=== PATIENT | male | born 1960 | race African-American/Black ===

== ENCOUNTER 2016-05-14 17:13 | Inpatient (IN) ==
--- NOTE | 2016-05-14 17:46 | Emergency Department Note ---
Jc Campa Brittany, am scribing for, and in the presence of, Juan Miguel Lance MD 17:37. Natalio Campa Doug C, MD, personally performed the services described in this documentation, ascribed by Deedee Greene in my presence, and it is both accurate and complete [id number] . Arrival - Arrival Chief Complaint: Nausea/Vomiting/Diarrhea ED Nursing Triage Note: c/o being a transfer from [facility] to for further evaluation of nausea/vomiting and possible small bowel obstruction,patient received 4 mg morphine/4 mg zofran,+ tenderness to the abd. 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 Patient has a history of invasive adenocarcinoma of the colon and underwent a diverting colostomy and partial colectomy in February 2016. Patient states he developed bloating and increased abdominal pain yesterday. He was seen at [facility] and had a CAT scan revealing small bowel obstruction versus ileus. Patient was transferred here for further evaluation. Patient states he feels much better since they put the NG tube in place. Is not having any fever or chills associated with this. Laboratory work at [facility] was unremarkable. Allergies/Adverse Reactions: Allergies Allergy/AdvReac Type Severity Reaction Status Date / Time No Known Allergies Allergy Unverified 03/01/16 23:34 Home Medications: Home Medications Medication Instructions Recorded Confirmed Type Ciprofloxacin Tab [Cipro Tab] 500 mg PO Q12HR #28 tablet 03/06/16 03/11/16 Rx Acetaminophen Tab [Tylenol Tab] 650 mg PO Q4H PRN #0 tablet 03/30/16 Rx Alum/Mag/Simeth Max Str Liquid 60 ml NG Q4H udcup 03/30/16 Rx [Mylanta Max Strength Liquid] Metoclopramide Tab [Reglan Tab] 5 mg PO BID #20 tablet 03/30/16 Rx Nicotine 21 mg/24 Hr Patch 1 patch TRANSDERM DAILY patch 03/30/16 Rx [Nicoderm CQ 21 mg/24 hr Patch] oxyCODONE/ACETAMINOPHEN 5-325 1 tablet PO Q8H PRN #40 tablet 03/30/16 Rx [Percocet 0-080] Review of System - Review of System 12 point system: reviewed and no additional remarkable complaints except as stated - Review of System Constitutional: Absent: chills, fever Eyes: Absent: vision change Head/Ears/Nose/Throat: Absent: nasal drainage, sore throat Respiratory: Absent: respiratory distress Cardiovascular: Absent: chest pain, palpitations Gastrointestinal: Present: abdominal pain, nausea, vomiting, constipation, other (bloating). Absent: diarrhea, melena, hematochezia Genitourinary male: Absent: urgency, dysuria, frequency Musculoskeletal: Absent: arm pain, back pain, leg pain, neck pain Skin: Absent: rash Neurological: Absent: headache Psychiatric: Absent: anxiety, depression Endocrine: Absent: fatigue Hematological/Lymphatic: Absent: easy bleeding, easy bruising Medical,Surgical,& Family Hx - Medical History Cardio: No history of: Hypertension Endocrine: No history of: Diabetes Mellitus (IDDM) Gastrointestinal: History of: Gastrointestinal Cancer - Surgical History Thoracic Surgeries: Patient denies;: Organ Transplant Abdominal Surgeries: Surgical HX of: Abdominal Surgery (Partial colectomy with diverting colostomy) - Family History Family History: noncontributory - Social History Smoking Status: Current every day smoker Exam Vital Signs: Vital Signs Temperature 98.0 F 05/14/16 17:13 Pulse Rate 81 05/14/16 17:21 Respiratory Rate 20 05/14/16 17:21 Blood Pressure 126/88 05/14/16 17:21 O2 Sat by Pulse Oximetry 100 05/14/16 17:21 - General General appearance: alert, in no apparent distress - Head Head exam: Present: atraumatic, normocephalic - Eye Eye exam: Present: PERRL, EOMI - ENT ENT exam: Present: normal oropharynx, mucous membranes moist - Neck Neck exam: Present: full ROM, trachea midline. Absent: tenderness - Chest Chest inspection: Present: symmetric chest wall rise. Absent: tenderness - Respiratory Respiratory exam: Present: normal lung sounds bilaterally. Absent: rales, rhonchi, wheezes - Cardiovascular Cardiovascular exam: Present: regular rate, normal rhythm, normal heart sounds. Absent: murmur, rubs, gallop - Abdominal Exam Abdominal exam: Present: soft, distention, tenderness (diffusely tender to palpation), diminished bowel sounds (silent bowel sounds), other (intact colostomy bag noted to the LLQ). Absent: normal bowel sounds - Extremities Exam Extremities exam: Present: full ROM. Absent: tenderness - Back Exam Back exam: Present: full ROM. Absent: tenderness - Neurological Exam Neurological exam: Present: alert, oriented X3, CN II-XII intact. Absent: motor sensory deficit - Psychiatric Psychiatric exam: Present: normal affect - Skin Skin exam: Present: warm, dry, intact, normal color Course Course Narrative: Patient's clinical presentation, laboratory and radiographic findings were discussed with Dr. Sousa. Patient will be admitted to Dr. Baxter's service Results - Labs Lab Results: I have reviewed the patients labs (Lab work from [facility] revealed no significant abnormality.) Disposition Clinical Impression: Small bowel obstruction, Colon cancer Case discussed with: patient Disposition: Still a Patient Condition: Stable Time of Disposition: 17:46
--- NOTE | 2016-05-14 19:18 | XRay Report ---
XR abdomen 2V Indication: Abdominal pain. Abdomen 3 views: When compared to 03/19/16, surgical clips throughout the left abdomen are again shown. The KELLY drain has been removed. Gaseous distention bordering on dilation of small bowel is present centrally and there is gas and stool in the colon. Air-fluid levels are present. Left lower quadrant colostomy noted. NG tube is present. Comparison the CT obtained at outside facility wires earlier confirms constipation of the colon, with small bowel dilatation is fluid filled with scattered air-fluid levels. Impression: Constipation. The presence of air-fluid levels and borderline dilated small bowel centrally suggests a severe ileus as well. Mechanical obstruction highly unlikely given the appearance of the colon. PROCEDURE INTERPRETED AT [facility] DEPARTMENT OF RADIOLOGY Final Report Signed by: Dany Pfeiffer M.D.
[2016-05-14] MEDS: MORPHINE 2 MG/1 ML SYRINGE IV PRN (20:33)
[2016-05-14] MEDS: DEXTROSE 5% NACL 0.45% 1,000 ML IV SCH (20:38)
[2016-05-15] MEDS: DEXTROSE 5% NACL 0.45% 1,000 ML IV SCH ×5 (03:42→21:30)
[2016-05-15] MEDS: MORPHINE 2 MG/1 ML SYRINGE IV PRN ×5 (03:42→21:46)
[2016-05-15] MEDS: ONDANSETRON 4 MG/2 ML VIAL IV PRN ×2 (04:03→12:46)
[2016-05-15 07:41] LABS: Basophils % 0.1 % (0.0-0.8); Eosinophils # 0.2 10*3/uL (0.0-0.87); Eosinophils % 1.7 % (0.00-10.9); Hematocrit 35.3 VOL% (42.0-52.0); Hemoglobin 10.8 GM/DL (14.0-18.0); Immature Granulocytes % 0.5 %; Immature Granulocytes Absolute 0.04 #; Lymphocytes # 1.5 10*3/uL (1.4-4.0); Lymphocytes % 17.4 % (21.2-54.2); Mean Corpuscular HGB Conc 30.6 GM/DL (32-36); Mean Corpuscular Hemoglobin 24 PG (27-34); Mean Corpuscular Volume 78.4 FL (87-102); Mean Platelet Volume 8.5 FL (9.6-12.0); Monocytes # 1.1 10*3/uL (0.11-0.8); Monocytes % 12.3 % (1.7-12.7); Neutrophils # 5.9 10*3/uL (1.4-7.4); Platelet Count 345 10*3/uL (130-400); White Blood Count 8.6 10*3/uL (4.5-13.71)
[2016-05-15 08:06] LABS: Osmolality,Calculated 281.1 MOS/KG (273-304); Potassium 3.6 MMOL/L (3.5-5.1)
[2016-05-15] MEDS: PANTOPRAZOLE 40 MG VIAL IV SCH (08:14)
--- NOTE | 2016-05-15 11:07 | CT Report ---
CT abdomen pelvis w con Indication: Small bowel obstruction. CT ABDOMEN AND PELVIS WITH CONTRAST DLP: 729 mGy*cm Comparison: CT from yesterday from outside facility Technique: Axial CT images of the abdomen and pelvis were obtained with IV contrast; Omnipaque 350, 100 cc. Oral contrast was administered. Abdomen: NG tube is present. Oral contrast is now present in the stomach and small bowel but does not reach the cecum. Small bowel dilatation, bowel wall thickening and multiple air-fluid levels are present. Greatest diameter of small bowel measured is almost 40 mm. Significant increased stool is present throughout colon. Left lower quadrant colostomy is present. Adjacent to the colostomy are couple of fluid collections the may be partially walled off. The largest of these is medial measuring 88 x 50 mm in size. Aorta is of normal caliber in the branch vessels of the SMA appear unremarkable. Trace ascites adjacent to the liver. Liver, spleen, pancreas, gallbladder, adrenal glands and right kidney are unremarkable. 8mm left renal cyst noted. Heart size is normal. Scarring lung bases is present. Pelvis: Small amount of free fluid is present in the pelvis. Urinary bladder appears thick walled superiorly. The Bernard's pouch is decompressed and appears grossly intact by CT. No lymphadenopathy identified. No bone lesions. Impression: 1. Small bowel dilatation with multiple air-fluid levels, bowel wall thickening and significant stool throughout colon noted. No transition point identified. If this is a mechanical obstruction, is distal colon at or near the site of the left lower quadrant colostomy. 2. Adjacent to the colostomy site are 2 fluid collections with additional minimal ascites adjacent to the liver and in the pelvis. Differential is ascites versus abscess. 3. Left renal cyst. PROCEDURE INTERPRETED AT [facility] DEPARTMENT OF RADIOLOGY Final Report Signed by: Dany Pfeiffer M.D.
[2016-05-15] MEDS: ENOXAPARIN 40 MG/0.4 ML SYRINGE SUBCUT SCH (12:45)
--- NOTE | 2016-05-15 13:54 | General Surg History&Physical ---
Assessment and Plan (1) Bowel obstruction Status: Acute Assessment and plan: This patient appears to have an obstruction at the site of his colostomy. There is some mass effect nearby from either fluid collections or tumor implants or could be a mixture of the tube. He is not febrile and has no white count and at this time after surgery I certainly think an abscess would be less likely. We are going to place a red rubber catheter and try to do enemas through the ostomy to see if we can relieve this. There is a small chance he could also have a small bowel obstruction but I don't see any clear transition point I think the more likely thing is that he is obstructed at the ostomy site so we will treat it like this for now and see how he does today. Continue NG tube to low intermittent wall suction in the meantime. Current Visit: No History of Present Illness Chief complaint: abdominal pain with decreased ostomy output History of present illness: Mr. Goel is a 55 year old male who recently underwent an exploratory laparotomy with sigmoid colectomy and end colostomy also known as a Bernard's procedure, by Dr. Baxter for a sigmoid colon obstruction ended being an invasive carcinoma. The patient presents back to the hospital last night with worsening abdominal pain and nausea and vomiting with decreased ostomy output. He was evaluated at outside hospital with a noncontrast CT scan that demonstrated diffuse enlargement of the small intestine as well as stool throughout the colon. He was transferred [facility] for management and admitted to the surgical service for evaluation. I repeated his CT scan of abdomen and pelvis with by mouth and IV contrast today and that reveals no discrete transition point in the small bowel but the contrast has not made it all the way into the colon and there is fairly significant constipation with stool throughout the colon as well as a possible narrowed site at the ostomy draining out into the bag as well as some fluid collections that appear walled off around the ostomy site and could represent abscess or tumor implants. The patient is fairly uncomfortable today but he feels a little bit better after NG tube placement. Home Medications Medication Instructions Recorded Confirmed Type Metoclopramide Tab [Reglan Tab] 5 mg PO BID #20 tablet 03/30/16 05/14/16 Rx Tamsulosin [Flomax] 0.4 mg PO DAILY 05/14/16 05/14/16 History Tramadol HCl [Tramadol Tab] 50 mg PO TID 05/14/16 05/14/16 History Allergies Allergy/AdvReac Type Severity Reaction Status Date / Time No Known Allergies Allergy Unverified 03/01/16 23:34 Medical,Surgical,& Family Hx - Medical History Cardio: No history of: Hypertension HEENT: History of: Ear Problem (bilateral hearing loss) Endocrine: No history of: Diabetes Mellitus (IDDM) Gastrointestinal: History of: Gastrointestinal Cancer Hematology: History of: Anemia - Surgical History Thoracic Surgeries: Patient denies;: Organ Transplant Abdominal Surgeries: Surgical HX of: Abdominal Surgery (Partial colectomy with diverting colostomy), Colonoscopy - Family History Family History: Reports;: Family Cancer (father), Family Heart Disease (father) , Family Hypertension (father), Family Stroke (father) - Social History Smoking Status: Current every day smoker Frequency of Alcohol Use: None Type of Drug Use: None Exam - Constitutional Vitals: Period Temp Pulse Resp BP Sys/Bruce Pulse Ox Last 24 Hr 97.8 F-99.3 F 76-92 16-20 112-140/68-82 96-99 General appearance: normal weight, no acute distress - Head Head exam: Present: normal inspection, normocephalic - Eye Eye exam: Present: EOMI Pupils: Present: EMMANUEL - ENT ENT exam: Present: normal exam Mouth exam: Present: normal external inspection, normal voice - Neck Neck exam: Present: normal inspection, trachea midline - Respiratory Respiratory exam: Present: clear to auscultation bilaterally. Absent: accessory muscle use, chest wall tenderness - Cardiovascular Cardiovascular exam: Present: RRR. Absent: systolic murmur, tachycardia - GI/Abdominal GI/Abdominal exam: Present: distended, hyperactive bowel sounds, tenderness, soft. Absent: ascites, guarding, rebound - Extremities Exam Extremities exam: Present: normal inspection, normal capillary refill - Back Exam Back exam: Present: normal inspection - Neurological Exam Neurological exam: Present: alert, oriented X3 Speech: Present: normal - Skin Skin exam: Present: normal color, warm - Constitutional Constitutional: Present: as per HPI - EENT Nose, mouth and throat: Present: as per HPI - Cardiovascular Cardiovascular: Present: as per HPI - Respiratory Respiratory: Present: as per HPI - Gastrointestinal Gastrointestinal: Present: as per HPI - Genitourinary Genitourinary: Present: as per HPI - Musculoskeletal Musculoskeletal: Present: as per HPI - Neurological Neurological: Present: as per HPI - Endocrine Endocrine: Present: as per HPI Hematologic/Lymphatic: Present: as per HPI Results - Labs CBC & BMP: 05/15/16 07:28 05/15/16 07:28 - Diagnostic Findings Procedure: CT Abdomen and Pelvis: image reviewed by me, report reviewed by me
[2016-05-16] MEDS: MORPHINE 2 MG/1 ML SYRINGE IV PRN ×4 (03:36→22:33)
[2016-05-16] MEDS: DEXTROSE 5% NACL 0.45% 1,000 ML IV SCH ×4 (03:41→21:07)
[2016-05-16] MEDS ORDERED: MINERAL OIL ENEMA 133 ML BOTTLE RECTAL ONE (08:09)
--- NOTE | 2016-05-16 08:19 | General Surgery Progress Note ---
Assessment and Plan - Time spent with patient Time spent with patient: Greater than 30 minutes (1) Bowel obstruction Status: Acute Assessment and plan: 05/16/2016. Patient seemed a little bit better abdomens fairly soft nondistended bowel sounds are active. He did have an enema yesterday and had pretty good results out of it. Reported to me from Dr. Sousa that there is a fullness in the ostomy site there and there is a pocket of fluid near the area in the left lower quadrant. He is about 6 weeks post colectomy for cancer with a in colostomy at this time. He is yet to start any treatments because this was post be done [place]. He had some results with the enema but looks pretty well constipated this time as though he what moving anything through the colostomy and he describes several days of no bowel movements. I don't think there is additional cancer in the colon at this point time but there is a fluid pocket with CT and we may see if we can get that draining case this is have an effect on the colon itself. We'll try some enemas at this point time try to continue to get him cleaned out. May consider a Gastrografin enema if we fail to get any better improvement. Current Visit: No Qualifiers: Intestinal obstruction type: fecal impaction Qualified Code(s): K56.41 - Fecal impaction Subjective Patient reports: Present: feels better, bowel movement, afebrile, other Exam - Constitutional Vitals: Period Temp Pulse Resp BP Sys/Bruce Pulse Ox Last 24 Hr 97.8 F-99.3 F 72-86 18-20 114-125/74-82 96-99 General appearance: mild distress - ENT ENT exam: Present: normal exam - Neck Neck exam: Present: normal inspection - Respiratory Respiratory exam: Present: rales - Cardiovascular Cardiovascular exam: Present: RRR - GI/Abdominal GI/Abdominal exam: Present: distended (mild), hypoactive bowel sounds, soft, other (colostomy left lower quadrant that looks in good shape with no deformities) - Extremities Exam Extremities exam: Present: normal inspection - Back Exam Back exam: Present: normal inspection - Neurological Exam Neurological exam: Present: alert, oriented X3, CN II-XII intact - Skin Skin exam: Present: normal color, warm, dry Results - Labs CBC & BMP: 05/15/16 07:28 05/15/16 07:28 Lab Results: I have reviewed the past 24 hour labs
[2016-05-16] MEDS: MINERAL OIL 30 ML UDCUP PO SCH ×2 (09:09→21:07)
[2016-05-16] MEDS: DOCUSATE SODIUM 100 MG CAPSULE PO SCH ×2 (09:09→21:07)
[2016-05-16] MEDS: PANTOPRAZOLE 40 MG VIAL IV SCH (09:09)
[2016-05-16] MEDS: TAMSULOSIN 0.4 MG CAPSULE PO SCH (09:09)
[2016-05-16] MEDS: METOCLOPRAMIDE 5 MG TABLET PO SCH ×2 (09:10→21:07)
[2016-05-16] MEDS: ENOXAPARIN 40 MG/0.4 ML SYRINGE SUBCUT SCH (12:21)
[2016-05-17] MEDS: MORPHINE 2 MG/1 ML SYRINGE IV PRN ×6 (02:23→22:05)
[2016-05-17] MEDS ORDERED: MAGNESIUM CITRATE 300 ML BOTTLE PO ONE (06:08)
[2016-05-17] MEDS: DEXTROSE 5% NACL 0.45% 1,000 ML IV SCH ×3 (06:21→22:05)
--- NOTE | 2016-05-17 06:23 | General Surgery Progress Note ---
Assessment and Plan - Time spent with patient Time spent with patient: Less than 30 minutes (1) Bowel obstruction Status: Acute Assessment and plan: 05/16/2016. Patient seemed a little bit better abdomens fairly soft nondistended bowel sounds are active. He did have an enema yesterday and had pretty good results out of it. Reported to me from Dr. Sousa that there is a fullness in the ostomy site there and there is a pocket of fluid near the area in the left lower quadrant. He is about 6 weeks post colectomy for cancer with a in colostomy at this time. He is yet to start any treatments because this was post be done [place]. He had some results with the enema but looks pretty well constipated this time as though he what moving anything through the colostomy and he describes several days of no bowel movements. I don't think there is additional cancer in the colon at this point time but there is a fluid pocket with CT and we may see if we can get that draining case this is have an effect on the colon itself. We'll try some enemas at this point time try to continue to get him cleaned out. May consider a Gastrografin enema if we fail to get any better improvement. 05/17/2016. Patient had little results from the or retention enema from yesterday so we'll try an enema today to see we can still break up some stool and get some of that moving. We'll try some mag citrate to see if we can stimulate things from above the Removed pushed his stool out. He remains a little bit distended and uncomfortable with little bowel movement. I put a finger into the colostomy and I did not feel and narrowing that Dr. Sousa indicated was present. His CT scan did show a fluid pocket near this area and we have consulted radiology about possibility of draining this to see if this will make a difference. Have not seen a report from radiologist at this time. We'll maintain present level of care to see if we can get him better and get things moving it this colon Clean. Current Visit: No Qualifiers: Intestinal obstruction type: fecal impaction Qualified Code(s): K56.41 - Fecal impaction Subjective Patient reports: Present: pain is less, no bowel movement, afebrile Exam - Constitutional Vitals: Period Temp Pulse Resp BP Sys/Bruce Pulse Ox Last 24 Hr 98.0 F-98.9 F 71-88 18-20 115-138/69-88 94-99 General appearance: mild distress - Head Head exam: Present: normal inspection - ENT ENT exam: Present: normal exam - Neck Neck exam: Present: normal inspection - Respiratory Respiratory exam: Present: clear to auscultation bilaterally, rales - Cardiovascular Cardiovascular exam: Present: RRR - GI/Abdominal GI/Abdominal exam: Present: distended, hypoactive bowel sounds, soft, other ( colostomy looks good when I put a finger into it seems to go to in pretty nicely without any problems. Little results from the enema from yesterday.) - Extremities Exam Extremities exam: Present: normal inspection - Back Exam Back exam: Present: normal inspection - Neurological Exam Neurological exam: Present: alert, oriented X3, CN II-XII intact - Skin Skin exam: Present: normal color, warm, dry Results - Labs CBC & BMP: 05/15/16 07:28 05/15/16 07:28 Lab Results: I have reviewed the past 24 hour labs
--- NOTE | 2016-05-17 09:17 | Inventional Radiology Consult ---
Assessment and Plan - Time spent with patient Time spent with patient: Greater than 30 minutes (1) Bowel obstruction Problem details: fluid collection/abscess near ostomy may be causing/ contributing to obstruction/constipation Status: Acute Assessment and plan: plan for image guided drainage today Current Visit: No Qualifiers: Intestinal obstruction type: fecal impaction Qualified Code(s): K56.41 - Fecal impaction (2) Status post partial colectomy Problem details: LLQ ostomy looks pink with red rubber catheter inplace Status : Acute Assessment and plan: ostomy appears well healed Current Visit: No IR Consult - Data of Consult Patient: new to practice Consult date: 05/16/16 Requesting Physician: Bo Baxter - Consult Narrative Reason for consult: possible intrabdominal abscess History of present illness: Amando is a 55 year old M with history of sigmoid colon resection who developed abdominal pain and several days ago and resultant imaging demonstrates a possible fluid collection or abscess adjacent to the ostomy within the left lower quadrant. Patient is afebrile but is having focal tenderness in the area of the abscess adjacent to the ostomy in the midline/left lower quadrant. Some nausea but no vomiting. No chest pain or shortness of breath. No other significant history. Review of systems otherwise negative. - Home Medications and Allergies Home Medications: Home Medications Medication Instructions Recorded Confirmed Type Metoclopramide Tab [Reglan Tab] 5 mg PO BID #20 tablet 03/30/16 05/14/16 Rx Tamsulosin [Flomax] 0.4 mg PO DAILY 05/14/16 05/14/16 History Tramadol HCl [Tramadol Tab] 50 mg PO TID 05/14/16 05/14/16 History Allergies/Adverse Reactions: Allergies Allergy/AdvReac Type Severity Reaction Status Date / Time No Known Allergies Allergy Unverified 03/01/16 23:34 12 point system: reviewed and no additional remarkable complaints except as stated Medical,Surgical,& Family Hx - Medical History Cardio: No history of: Hypertension HEENT: History of: Ear Problem (bilateral hearing loss) Endocrine: No history of: Diabetes Mellitus (IDDM) Gastrointestinal: History of: Gastrointestinal Cancer Hematology: History of: Anemia - Surgical History Thoracic Surgeries: Patient denies;: Organ Transplant Abdominal Surgeries: Surgical HX of: Abdominal Surgery (Partial colectomy with diverting colostomy), Colonoscopy - Family History Family History: Reports;: Family Cancer (father), Family Heart Disease (father) , Family Hypertension (father), Family Stroke (father) - Social History Smoking Status: Current every day smoker Frequency of Alcohol Use: None Type of Drug Use: None Exam - Labs CBC & BMP: 05/15/16 07:28 05/15/16 07:28 Lab Results: I have reviewed the past 24 hour labs Image Studies: CT abdomen pelvis 05/15/16 - Constitutional Vitals: Period Temp Pulse Resp BP Sys/Bruce Pulse Ox Last 24 Hr 98.0 F-98.9 F 71-88 18-20 123-138/70-88 94-99 General appearance: normal weight - Eye Eye exam: Present: EOMI - Respiratory Respiratory exam: Present: clear to auscultation bilaterally - Cardiovascular Cardiovascular exam: Present: regular rate and rhythm - GI/Abdominal GI/Abdominal exam: Present: firm, hypoactive bowel sounds, tenderness (midline lower abdomen). Absent: distended - Neurological Exam Neurological exam: Present: alert, oriented X3 - Psychiatric Psychiatric exam: Present: normal affect, normal mood - Skin Skin exam: Present: normal color, dry
[2016-05-17] MEDS: MINERAL OIL 30 ML UDCUP PO SCH ×2 (10:07→22:05)
[2016-05-17] MEDS: METOCLOPRAMIDE 5 MG TABLET PO SCH ×2 (10:07→22:04)
[2016-05-17] MEDS: DOCUSATE SODIUM 100 MG CAPSULE PO SCH ×2 (10:07→22:05)
[2016-05-17] MEDS: TAMSULOSIN 0.4 MG CAPSULE PO SCH (10:07)
[2016-05-17] MEDS: PANTOPRAZOLE 40 MG VIAL IV SCH (10:07)
[2016-05-17] MEDS ORDERED: ONDANSETRON 4 MG/2 ML VIAL ONE (14:24)
[2016-05-17] MEDS: ONDANSETRON 4 MG/2 ML VIAL IV PRN (14:26)
--- NOTE | 2016-05-17 15:22 | Post Interventional Procedure ---
Pre-op diagnosis: abdominal pain/constipation h/o sigmoid colon CA s/p resection Post-op diagnosis: same Procedure: CT guided abdominal fluid collection drainage catheter placement Contrast: none Flouroscopy: none Radiologist: Addi Henry Anesthesia: local Specimens: other (serous fluid sample sent for GS/CX and cell count/cytology) Estimated blood loss: none Complications: none Condition: stable Description/Findings: The anterior abdominal wall collection appears similar as compared to prior cross-sectional imaging in the lower abdomen. Midline adjacent to the left lower quadrant colostomy. This was targeted for drainage. An 8 Malay pigtail drainage catheter was looped in position and complete drainage of the collection was noted on final images. Approximately 100 mL of serous fluid was aspirated. Given the small size, this may achieve complete drainage relatively quickly. Assessment and Plan - Time spent with patient Time spent with patient: Less than 30 minutes (1) Bowel obstruction Problem details: fluid collection/abscess near ostomy may be causing/ contributing to obstruction/constipation Status: Acute Assessment and plan: plan for image guided drainage today Current Visit: No Qualifiers: Intestinal obstruction type: fecal impaction Qualified Code(s): K56.41 - Fecal impaction (2) Status post partial colectomy Problem details: LLQ ostomy looks pink with red rubber catheter inplace Status : Acute Assessment and plan: ostomy appears well healed Current Visit: No
[2016-05-17 15:49] LABS: Neutrophils,Peritoneal Fluid 1 %; RBC,Peritoneal Fluid 2827 T/CUMM
--- NOTE | 2016-05-17 16:19 | CT Report ---
CT abscess drainage Abdominal fluid collection drainage using CT guidance Clinical Information: 55-year-old male with history of sigmoid colon cancer status post resection with obstruction or constipation symptoms and development of a fluid collection in the lower intra-abdominal wall adjacent to the left lower quadrant ostomy. Physician[s]: Dr. Henry Procedure: The patient was advised of the benefits, risks, and alternatives of the procedure and informed consent was obtained. A time out was performed with verification of the patient's name, MRN, site of procedure, and type of procedure to be performed. Local anesthesia only was used for the procedure. The patient was placed in the supine on the CT gantry and a scan was performed through the region of interest. This demonstrates no significant change in the lower midline left lower quadrant fluid collection is seen on prior CT imaging. After marking the overlying skin, the patient was prepped and draped in the usual sterile fashion. The soft tissues overlying the anticipated puncture site were anesthetized with lidocaine. Through this anesthetized region, a 21 G AccuStick needle was passed into the fluid collection with intermittent CT fluoroscopic guidance. Serous material was aspirated with some debris. A J-wire was advanced into the fluid collection, over which an 8 Pashto Cook all-purpose drain was passed. A fluid specimen was aspirated. Subsequent localized CT-scanning was performed to confirm the catheter location. The catheter was then locked, sutured in position with Percu-Stay device and placed to gravity drainage. The fluid specimen was labeled with the patient's name and medical record number and sent to the laboratory for further analysis. The patient tolerated the procedure well and was returned to the PRU in stable condition. EBL: < 5 mL. Complications: None. Conclusion: 1. Successful placement of an 8 Pashto pigtail drain in a lower abdominal fluid collection. 2. The catheter should be flushed with minimal thin ml of normal saline every 8 hours. Monitor/record drainage output minus flush. 3. The primary team should contact Interventional Radiology when output is less than 15 ml per day for two consecutive days. PROCEDURE INTERPRETED AT [facility] DEPARTMENT OF RADIOLOGY Final Report Signed by: Addi Henry
[2016-05-18] MEDS: MORPHINE 2 MG/1 ML SYRINGE IV PRN ×5 (04:00→21:37)
[2016-05-18 04:39] LABS: Basophils % 0.1 % (0.0-0.8); Eosinophils # 0.2 10*3/uL (0.0-0.87); Eosinophils % 2.4 % (0.00-10.9); Hematocrit 35.5 VOL% (42.0-52.0); Hemoglobin 10.8 GM/DL (14.0-18.0); Immature Granulocytes % 0.4 %; Immature Granulocytes Absolute 0.04 #; Lymphocytes # 1.3 10*3/uL (1.4-4.0); Lymphocytes % 12.8 % (21.2-54.2); Mean Corpuscular HGB Conc 30.4 GM/DL (32-36); Mean Corpuscular Hemoglobin 24 PG (27-34); Mean Corpuscular Volume 79.2 FL (87-102); Mean Platelet Volume 9.1 FL (9.6-12.0); Monocytes # 1.5 10*3/uL (0.11-0.8); Monocytes % 15.2 % (1.7-12.7); Neutrophils # 6.8 10*3/uL (1.4-7.4); Neutrophils % 69.1 % (38.7-73.9); Platelet Count 349 T/CUMM (130-400); Red Blood Count 4.48 MC/CUMM (3.8-5.5); Red Cell Distribution Width 15.9 % (9.3-17.3); White Blood Count 9.8 T/CUMM (4-12)
[2016-05-18 05:09] LABS: Calcium 8.9 MG/DL (8.5-10.1); Magnesium 2.3 MG/DL (1.8-2.4); Osmolality,Calculated 279.1 MOS/KG (273-304); Potassium 3.6 MMOL/L (3.5-5.1)
[2016-05-18] MEDS: DEXTROSE 5% NACL 0.45% 1,000 ML IV SCH ×3 (05:32→20:05)
--- NOTE | 2016-05-18 08:37 | General Surgery Progress Note ---
Assessment and Plan (1) Bowel obstruction Problem details: fluid collection/abscess near ostomy may be causing/ contributing to obstruction/constipation Status: Acute Assessment and plan: 05/16/2016. Patient seemed a little bit better abdomens fairly soft nondistended bowel sounds are active. He did have an enema yesterday and had pretty good results out of it. Reported to me from Dr. Sousa that there is a fullness in the ostomy site there and there is a pocket of fluid near the area in the left lower quadrant. He is about 6 weeks post colectomy for cancer with a in colostomy at this time. He is yet to start any treatments because this was post be done [place]. He had some results with the enema but looks pretty well constipated this time as though he what moving anything through the colostomy and he describes several days of no bowel movements. I don't think there is additional cancer in the colon at this point time but there is a fluid pocket with CT and we may see if we can get that draining case this is have an effect on the colon itself. We'll try some enemas at this point time try to continue to get him cleaned out. May consider a Gastrografin enema if we fail to get any better improvement. 05/17/2016. Patient had little results from the or retention enema from yesterday so we'll try an enema today to see we can still break up some stool and get some of that moving. We'll try some mag citrate to see if we can stimulate things from above the Removed pushed his stool out. He remains a little bit distended and uncomfortable with little bowel movement. I put a finger into the colostomy and I did not feel and narrowing that Dr. Sousa indicated was present. His CT scan did show a fluid pocket near this area and we have consulted radiology about possibility of draining this to see if this will make a difference. Have not seen a report from radiologist at this time. We'll maintain present level of care to see if we can get him better and get things moving it this colon Clean. 05/18/2016. Patient continues to have some problems with constipation even though the x- rays look a little bit better there is still remains stool in the right colon. He had a little complaint of nausea yesterday which may benefit mag citrate unclear at this point. They did at the present NG tube to suction again but it' s clamped now. He has excellent bowel sounds at this point we just not getting much drainage from the colostomy. He did have a percutaneous drainage of this fluid cavity and it did not sound grossly infected I suspect some cultures have been obtained at this time. At this point he is making slow progress and we'll try some more enemas to try to getting a little more clear possible and to have no evidence of any unusual problem of obstruction. If we can get things moving his constipation clear he may get better but when I see any good bit of drainage from the ostomy. We'll try some enemas again today see if I can move things along. Current Visit: No Qualifiers: Intestinal obstruction type: fecal impaction Qualified Code(s): K56.41 - Fecal impaction Subjective Patient reports: Present: feels better, no bowel movement, nausea, afebrile Exam - Constitutional Vitals: Period Temp Pulse Resp BP Sys/Bruce Pulse Ox Last 24 Hr 98.4 F-99.1 F 70-90 16-22 115-150/64-86 97-100 General appearance: mild distress - Head Head exam: Present: normal inspection - ENT ENT exam: Present: normal exam - Neck Neck exam: Present: normal inspection - Respiratory Respiratory exam: Present: rales - Cardiovascular Cardiovascular exam: Present: RRR - GI/Abdominal GI/Abdominal exam: Present: normal bowel sounds, distended (still slightly.), soft, other (colostomy with minimal function at this time still. A cutaneous drain is in place now and cultures are pending) - Extremities Exam Extremities exam: Present: normal inspection, normal capillary refill - Neurological Exam Neurological exam: Present: alert, oriented X3, CN II-XII intact - Skin Skin exam: Present: normal color, warm, dry Results - Labs CBC & BMP: 05/18/16 03:45 05/18/16 03:45 Lab Results: I have reviewed the past 24 hour labs
[2016-05-18] MEDS: METOCLOPRAMIDE 5 MG TABLET PO SCH ×2 (09:22→18:08)
[2016-05-18] MEDS: MINERAL OIL 30 ML UDCUP PO SCH ×2 (09:23→21:20)
[2016-05-18] MEDS: TAMSULOSIN 0.4 MG CAPSULE PO SCH (09:23)
[2016-05-18] MEDS: DOCUSATE SODIUM 100 MG CAPSULE PO SCH ×2 (09:23→21:40)
[2016-05-18] MEDS: PANTOPRAZOLE 40 MG VIAL IV SCH (09:23)
[2016-05-18] MEDS: ALUMINUM/MAGNES/SIMETH MAX STR 30 ML UDCUP PO SCH ×3 (09:30→21:39)
--- NOTE | 2016-05-18 09:48 | XRay Report ---
XR abdomen 2V Indication: Constipation Comparison: None Technique: Frontal views of the abdomen in supine and upright position. Findings: Pigtail catheter projects over the left lower quadrant. Additional catheter projects over the left lateral abdomen. Nonweighted enteric tube tip projects over the mid stomach. Scattered fluid levels throughout the abdomen may reflect mild ileus. Osseous and surrounding soft tissue structures appear grossly unchanged. Lung bases clear. IMPRESSION: Mild ileus. PROCEDURE INTERPRETED AT [facility] DEPARTMENT OF RADIOLOGY Final Report Signed by: Dr Yao Beck
[2016-05-19] MEDS: MORPHINE 2 MG/1 ML SYRINGE IV PRN ×6 (02:09→22:13)
[2016-05-19] MEDS: METOCLOPRAMIDE 5 MG TABLET PO SCH ×4 (02:10→23:56)
[2016-05-19] MEDS: ALUMINUM/MAGNES/SIMETH MAX STR 30 ML UDCUP PO SCH ×4 (02:10→21:22)
[2016-05-19] MEDS: DEXTROSE 5% NACL 0.45% 1,000 ML IV SCH ×3 (03:32→16:25)
[2016-05-19 06:18] LABS: Basophils % 0.2 % (0.0-0.8); Eosinophils # 0.3 10*3/uL (0.0-0.87); Eosinophils % 3.2 % (0.00-10.9); Hematocrit 35.5 VOL% (42.0-52.0); Hemoglobin 10.9 GM/DL (14.0-18.0); Immature Granulocytes % 0.4 %; Immature Granulocytes Absolute 0.04 #; Lymphocytes # 1.2 10*3/uL (1.4-4.0); Lymphocytes % 13.4 % (21.2-54.2); Mean Corpuscular HGB Conc 30.7 GM/DL (32-36); Mean Corpuscular Hemoglobin 24 PG (27-34); Mean Corpuscular Volume 78.2 FL (87-102); Mean Platelet Volume 8.6 FL (9.6-12.0); Monocytes # 1.1 10*3/uL (0.11-0.8); Monocytes % 12.2 % (1.7-12.7); Neutrophils # 6.3 10*3/uL (1.4-7.4); Neutrophils % 70.6 % (38.7-73.9); Platelet Count 331 T/CUMM (130-400); Red Blood Count 4.54 MC/CUMM (3.8-5.5); Red Cell Distribution Width 15.6 % (9.3-17.3); White Blood Count 8.9 T/CUMM (4-12)
[2016-05-19 06:51] LABS: Albumin 2.8 G/DL (3.4-5.0); Bilirubin,Total 0.6 MG/DL (0.2-1.0); Calcium 8.9 MG/DL (8.5-10.1); Osmolality,Calculated 283.8 MOS/KG (273-304); Potassium 3.1 MMOL/L (3.5-5.1); Total Protein 6.7 G/DL (6.4-8.3)
[2016-05-19] MEDS: DOCUSATE SODIUM 100 MG CAPSULE PO SCH ×2 (09:50→20:27)
[2016-05-19] MEDS: TAMSULOSIN 0.4 MG CAPSULE PO SCH (09:51)
[2016-05-19] MEDS: PANTOPRAZOLE 40 MG VIAL IV SCH (09:52)
[2016-05-19] MEDS: MINERAL OIL 30 ML UDCUP PO SCH ×2 (09:52→21:22)
--- NOTE | 2016-05-19 10:40 | Pathology Report from [facility] ---
ACCESSION # : [id number] PATIENT NAME : Giancarlo Goel ORDERING DR : Addi Henry MD CLINICAL HX: Abdominal Right Lower Quad Abcess drainage. History of Colon CA POST-OP DX: Same SPECIMEN INFO: Fluid,Abdominal.RightLowerQuad - 20 ml's dark yellow with clot, hazy. CLASS: I CLASS COMMENTS: Proteinaceous material and a few inflammatory cells present.CELL BLOCK: Same CLASS LEGEND: CLASS 0 Material inadequate for diagnosis because of (see comment) CLASS I Absence of atypical or abnormal cells CLASS II Atypical Cytology but no evidence of malignancy CLASS III Cytology suggestive of but not conclusive for malignancy CLASS IV Cytology strongly suggestive of malignancy CLASS V Cytology conclusive for malignancy SERVICE DATE: 05/18/2016 REPORT DATE: 05/19/2016 PATHOLOGIST: Isaías Travis III, M.D. MTDD
--- NOTE | 2016-05-19 10:52 | General Surgery Progress Note ---
Assessment and Plan - Time spent with patient Time spent with patient: Less than 30 minutes (1) Bowel obstruction Problem details: fluid collection/abscess near ostomy may be causing/ contributing to obstruction/constipation Status: Acute Assessment and plan: 05/19/16 Abdominal pain and possible obstipation/obstruction. We'll plan gastrograffin CT in am to check for changes. I've asked staff to specifically record details of any emesis, especially since he's pulled out his NG tube. Current Visit: No Qualifiers: Intestinal obstruction type: fecal impaction Qualified Code(s): K56.41 - Fecal impaction Subjective Patient reports: Present: other (Pt reports 'vomiting' but this is subjective; staff says they've only seen sputum. Denies pain.) Exam - Constitutional Vitals: Period Temp Pulse Resp BP Sys/Bruce Pulse Ox Last 24 Hr 98.2 F-99.2 F 69-94 18-20 108-130/65-95 95-100 General appearance: no acute distress - Respiratory Respiratory exam: Present: rhonchi. Absent: rales, wheezes - GI/Abdominal GI/Abdominal exam: Present: normal bowel sounds, distended, other (Stoma pink with pink-tinged fluid in bag, less than 10mL. No solid stool. ). Absent: guarding, rebound Results - Labs CBC & BMP: 05/19/16 05:57 05/19/16 05:57
[2016-05-19] MEDS: ENOXAPARIN 40 MG/0.4 ML SYRINGE SUBCUT SCH (12:57)
--- NOTE | 2016-05-19 16:11 | Event Note ---
Output from the drain has significantly tapered off. All studies from the fluid were also negative for neoplastic or infectious process. Drain can likely be removed either this afternoon or tomorrow.
[2016-05-20] MEDS: DEXTROSE 5% NACL 0.45% 1,000 ML IV SCH ×4 (01:33→23:21)
[2016-05-20] MEDS: MORPHINE 2 MG/1 ML SYRINGE IV PRN ×3 (02:34→21:12)
[2016-05-20] MEDS: ALUMINUM/MAGNES/SIMETH MAX STR 30 ML UDCUP PO SCH ×4 (02:56→21:12)
[2016-05-20] MEDS: ONDANSETRON 4 MG/2 ML VIAL IV PRN ×2 (06:15→21:12)
--- NOTE | 2016-05-20 08:41 | General Surgery Progress Note ---
Assessment and Plan - Time spent with patient Time spent with patient: Less than 30 minutes (1) Bowel obstruction Problem details: fluid collection/abscess near ostomy may be causing/ contributing to obstruction/constipation Status: Acute Assessment and plan: 05/16/2016. Patient seemed a little bit better abdomens fairly soft nondistended bowel sounds are active. He did have an enema yesterday and had pretty good results out of it. Reported to me from Dr. Sousa that there is a fullness in the ostomy site there and there is a pocket of fluid near the area in the left lower quadrant. He is about 6 weeks post colectomy for cancer with a in colostomy at this time. He is yet to start any treatments because this was post be done [place]. He had some results with the enema but looks pretty well constipated this time as though he what moving anything through the colostomy and he describes several days of no bowel movements. I don't think there is additional cancer in the colon at this point time but there is a fluid pocket with CT and we may see if we can get that draining case this is have an effect on the colon itself. We'll try some enemas at this point time try to continue to get him cleaned out. May consider a Gastrografin enema if we fail to get any better improvement. 05/17/2016. Patient had little results from the or retention enema from yesterday so we'll try an enema today to see we can still break up some stool and get some of that moving. We'll try some mag citrate to see if we can stimulate things from above the Removed pushed his stool out. He remains a little bit distended and uncomfortable with little bowel movement. I put a finger into the colostomy and I did not feel and narrowing that Dr. Sousa indicated was present. His CT scan did show a fluid pocket near this area and we have consulted radiology about possibility of draining this to see if this will make a difference. Have not seen a report from radiologist at this time. We'll maintain present level of care to see if we can get him better and get things moving it this colon Clean. 05/18/2016. Patient continues to have some problems with constipation even though the x- rays look a little bit better there is still remains stool in the right colon. He had a little complaint of nausea yesterday which may benefit mag citrate unclear at this point. They did at the present NG tube to suction again but it' s clamped now. He has excellent bowel sounds at this point we just not getting much drainage from the colostomy. He did have a percutaneous drainage of this fluid cavity and it did not sound grossly infected I suspect some cultures have been obtained at this time. At this point he is making slow progress and we'll try some more enemas to try to getting a little more clear possible and to have no evidence of any unusual problem of obstruction. If we can get things moving his constipation clear he may get better but when I see any good bit of drainage from the ostomy. We'll try some enemas again today see if I can move things along. 05/20/2016. Patient his not making much progress at this time. Nurses report the seen to be spitting up more than he is actually vomiting. Unfortunately his abdomen remains distended and he remains little uncomfortable taking in very little nourishment by mouth. Colostomy is open wound and we've given several enemas and we still not getting much drainage out of this at this time. Unclear exactly what the clear etiology might be at this point time. Repeat CT scan with contrast will see contrast into the colon we are still remains with a large amount of distended small bowel and some fluid around these loops of bowel. Cultures are pending on the drainage that we drained from the cavity that they removed in radiology. At this point I will probably start a PICC line with some hyper out to get into nourishment. I am concerned that what we are looking at now his extensive metastatic disease of the abdomen with partial bowel obstruction. He may be requiring surgical exploration which would be extremely difficult but we may be faced that if he fails to show any signs of improvement. We'll get oncology way back in on him at this time. Current Visit: No Qualifiers: Intestinal obstruction type: fecal impaction Qualified Code(s): K56.41 - Fecal impaction Subjective Patient reports: Present: pain is less, no bowel movement, nausea, afebrile, other (no general improvement at this point in time and CT scan report is not out.) Exam - Constitutional Vitals: Period Temp Pulse Resp BP Sys/Bruce Pulse Ox Last 24 Hr 97.9 F-99.1 F 66-74 16-18 111-129/69-78 97-99 General appearance: mild distress - Head Head exam: Present: normal inspection - ENT ENT exam: Present: normal exam - Neck Neck exam: Present: normal inspection - Respiratory Respiratory exam: Present: rales - Cardiovascular Cardiovascular exam: Present: RRR - GI/Abdominal GI/Abdominal exam: Present: normal bowel sounds, distended, other (colostomy with minimal drainage.). Absent: mass - Extremities Exam Extremities exam: Present: normal inspection - Back Exam Back exam: Present: normal inspection - Neurological Exam Neurological exam: Present: alert, oriented X3, CN II-XII intact - Skin Skin exam: Present: normal color, warm, dry Results - Labs CBC & BMP: 05/19/16 05:57 05/19/16 05:57
--- NOTE | 2016-05-20 09:07 | CT Report ---
CT abdomen pelvis Indication: Nausea, vomiting, colostomy Comparison: 17 May 2016 Technique: Axial CT imaging of the abdomen and pelvis is performed with intravenous and oral contrast. Contrast dose is 100 cc of Omnipaque 350. Findings: Pericardial lesion is present similar to previous study. CT abdomen: The liver spleen pancreas and adrenal glands are normal in size and enhancement. No evidence of focal lesion is demonstrated in these solid organs. Kidneys are normal in size and enhancement. No evidence of hydronephrosis or nephrolithiasis is seen. Prominent loops of small are present throughout the abdomen, no focal transition point is seen. Contrast is not completely filled the bowel, partially limiting comparison evaluation especially in lower abdomen. Contrast is present within the colon. Drain is seen in the left anterior abdomen without adjacent fluid collection. Colostomy site appears within normal limits. Small amount of ascites is present. No wall thickening or adjacent inflammatory change is seen. No evidence of free fluid or free air is present. CT pelvis: Bladder shows no evidence of abnormality. The pelvic organs show no evidence of abnormality Impression: Decrease in fluid collection at the abdominal drain site. Prominent loops of small bowel without discrete transition point identified, could indicate ileus versus partial obstruction. Distal bowel and pelvic detail are limited from lack of bowel contrast. PROCEDURE INTERPRETED AT [facility] DEPARTMENT OF RADIOLOGY Final Report Signed by: Dr. Rustam Lincoln
[2016-05-20] MEDS: PANTOPRAZOLE 40 MG VIAL IV SCH (10:06)
[2016-05-20] MEDS: METOCLOPRAMIDE 5 MG TABLET PO SCH ×2 (10:08→19:23)
[2016-05-20] MEDS: TAMSULOSIN 0.4 MG CAPSULE PO SCH (10:09)
[2016-05-20] MEDS: DOCUSATE SODIUM 100 MG CAPSULE PO SCH ×2 (10:09→21:13)
[2016-05-20] MEDS: MINERAL OIL 30 ML UDCUP PO SCH ×2 (10:09→21:12)
[2016-05-20] MEDS ORDERED: GLUCAGON 1 MG VIAL IM PRN (14:23)
[2016-05-20] MEDS ORDERED: DEXTROSE 50% 25 GM/50 ML VIAL IV PRN (14:23)
[2016-05-20] MEDS: ENOXAPARIN 40 MG/0.4 ML SYRINGE SUBCUT SCH (15:27)
--- NOTE | 2016-05-20 15:47 | Post Interventional Procedure ---
Pre-op diagnosis: Abscess Post-op diagnosis: same Procedure: PICC LUE Flouroscopy: 0.1 min Radiologist: Dany Pfeiffer Anesthesia: local Specimens: none sent Estimated blood loss: none Complications: none Condition: stable
[2016-05-20] MEDS ORDERED: ELECTROLYTE CONCENTRATE 20 ML, TRACE ELEMENTS (5) 1 ML, MULTIVITAMIN INJ 10 ML in AMINO... IV SCH (17:00)
[2016-05-20] MEDS ORDERED: DEXTROSE 10% 1,000 ML IV PRN (17:00)
--- NOTE | 2016-05-20 17:16 | Ultrasound Report ---
IR PICC line insertion, US guide vascular access Indication: Intra-abdominal abscess. TPN requirement. PICC LINE Description: A formal timeout was performed. Maximum sterile barrier technique was used. Sonographic evaluation of the left upper extremity demonstrates patent and compressible brachial vein. The upper arm was prepped and draped in sterile fashion. 3 cc 1% lidocaine was administered subcutaneously. Under sonographic guidance, a micropuncture needle was advanced into the vein. A captured sonographic image documents the position of the needle. Needle was exchanged over a wire for a peel-away sheath. A dual lumen power PICC, cut to 43 cm, was advanced over the wire until the tip was at the RA-SVC junction. The position of the catheter was confirmed with fluoroscopic guidance and an image stored in PACS. The wire and sheath were removed. Both ports of the PICC were aspirated and flushed with heparinized saline. The device was secured with a StatLock. Fluoroscopy: 0.1 minute. Impression: PICC line ready for immediate use. Routine catheter care. PROCEDURE INTERPRETED AT [facility] DEPARTMENT OF RADIOLOGY Final Report Signed by: Dany Pfeiffer M.D.
[2016-05-20] MEDS: INSULIN REGULAR 100 UNIT/ML SUBCUT SCH (19:23)
[2016-05-20] MEDS: FAT EMULSION 20% 250 ML IV SCH (19:23)
[2016-05-21] MEDS: INSULIN REGULAR 100 UNIT/ML SUBCUT SCH ×4 (01:36→17:38)
[2016-05-21] MEDS: METOCLOPRAMIDE 5 MG TABLET PO SCH ×3 (01:57→16:23)
[2016-05-21] MEDS: MORPHINE 2 MG/1 ML SYRINGE IV PRN ×5 (01:57→20:34)
[2016-05-21 03:49] LABS: Basophils % 0.2 % (0.0-0.8); Eosinophils # 0.3 10*3/uL (0.0-0.87); Eosinophils % 5.4 % (0.00-10.9); Hematocrit 31.9 VOL% (42.0-52.0); Immature Granulocytes % 0.3 %; Immature Granulocytes Absolute 0.02 #; Lymphocytes # 1.1 10*3/uL (1.4-4.0); Mean Corpuscular HGB Conc 31.3 GM/DL (32-36); Mean Corpuscular Hemoglobin 24 PG (27-34); Mean Corpuscular Volume 76.9 FL (87-102); Monocytes # 1.1 10*3/uL (0.11-0.8); Monocytes % 17.4 % (1.7-12.7); Neutrophils # 3.8 10*3/uL (1.4-7.4); Neutrophils % 59.7 % (38.7-73.9); Platelet Count 313 T/CUMM (130-400); Red Blood Count 4.15 MC/CUMM (3.8-5.5); Red Cell Distribution Width 15.6 % (9.3-17.3); White Blood Count 6.3 T/CUMM (4-12)
[2016-05-21] MEDS: ALUMINUM/MAGNES/SIMETH MAX STR 30 ML UDCUP PO SCH ×4 (03:57→20:35)
[2016-05-21] MEDS: DEXTROSE 5% NACL 0.45% 1,000 ML IV SCH ×4 (03:57→20:34)
[2016-05-21 04:21] LABS: Alanine Aminotransferase 9 U/L (16-61); Albumin 2.5 G/DL (3.4-5.0); Alkaline Phosphatase 75 U/L (45-117); Aspartate Amino Transferase 11 U/L (0-37); Bilirubin,Total < 0.39 MG/DL (0.2-1.0); Blood Urea Nitrogen 4 MG/DL (7-18); Calcium 8.2 MG/DL (8.5-10.1); Glucose 116 MG/DL (74-106); Osmolality,Calculated 283.8 MOS/KG (273-304); Potassium 3.2 MMOL/L (3.5-5.1); Sodium 144 MMOL/L (136-145); Total Protein 5.9 G/DL (6.4-8.3)
[2016-05-21 05:06] LABS: Eosinophils 2 % (0-10); Lymphocytes 22 % (20-55); Segmented Neutrophils 64 % (50-85); Total Cells Counted 100
[2016-05-21 05:07] LABS: Platelet Estimate Normal
[2016-05-21] MEDS: TAMSULOSIN 0.4 MG CAPSULE PO SCH (09:44)
[2016-05-21] MEDS: PANTOPRAZOLE 40 MG VIAL IV SCH (09:44)
[2016-05-21] MEDS: DOCUSATE SODIUM 100 MG CAPSULE PO SCH ×2 (09:44→20:34)
[2016-05-21] MEDS: MINERAL OIL 30 ML UDCUP PO SCH ×2 (09:44→20:35)
[2016-05-21] MEDS: ENOXAPARIN 40 MG/0.4 ML SYRINGE SUBCUT SCH (13:53)
[2016-05-21] MEDS: FAT EMULSION 20% 250 ML IV SCH (15:30)
[2016-05-21] MEDS: ELECTROLYTE CONCENTRATE 40 ML, TRACE ELEMENTS (5) 1 ML, MULTIVITAMIN INJ 10 ML in AMINO... IV SCH (17:39)
[2016-05-22] MEDS: INSULIN REGULAR 100 UNIT/ML SUBCUT SCH ×4 (00:16→16:59)
[2016-05-22] MEDS: METOCLOPRAMIDE 5 MG TABLET PO SCH ×3 (01:04→16:22)
[2016-05-22] MEDS: MORPHINE 2 MG/1 ML SYRINGE IV PRN ×5 (01:32→22:01)
[2016-05-22] MEDS: DEXTROSE 5% NACL 0.45% 1,000 ML IV SCH ×5 (05:08→23:10)
[2016-05-22] MEDS: ALUMINUM/MAGNES/SIMETH MAX STR 30 ML UDCUP PO SCH ×4 (05:09→21:54)
[2016-05-22] MEDS: TAMSULOSIN 0.4 MG CAPSULE PO SCH (08:39)
[2016-05-22] MEDS: MINERAL OIL 30 ML UDCUP PO SCH ×2 (08:39→21:55)
[2016-05-22] MEDS: DOCUSATE SODIUM 100 MG CAPSULE PO SCH ×2 (08:39→21:54)
[2016-05-22] MEDS: PANTOPRAZOLE 40 MG VIAL IV SCH (08:39)
--- NOTE | 2016-05-22 09:21 | Event Note ---
He feels well. I did see the patient yesterday but somehow missed putting a note into the computer system. He feels well and is tolerating a diet. He is afebrile and his abdomen is benign.
[2016-05-22] MEDS: ENOXAPARIN 40 MG/0.4 ML SYRINGE SUBCUT SCH (11:37)
[2016-05-22] MEDS: FAT EMULSION 20% 250 ML IV SCH (14:11)
[2016-05-22] MEDS: ELECTROLYTE CONCENTRATE 40 ML, TRACE ELEMENTS (5) 1 ML, MULTIVITAMIN INJ 10 ML in AMINO... IV SCH (16:59)
[2016-05-23] MEDS: INSULIN REGULAR 100 UNIT/ML SUBCUT SCH ×4 (00:38→18:34)
[2016-05-23] MEDS: METOCLOPRAMIDE 5 MG TABLET PO SCH ×3 (01:37→15:40)
[2016-05-23] MEDS: ALUMINUM/MAGNES/SIMETH MAX STR 30 ML UDCUP PO SCH ×5 (02:25→20:17)
[2016-05-23] MEDS: DEXTROSE 5% NACL 0.45% 1,000 ML IV SCH ×4 (02:30→22:24)
[2016-05-23] MEDS: MORPHINE 2 MG/1 ML SYRINGE IV PRN ×5 (02:30→20:14)
[2016-05-23 06:52] LABS: Magnesium 2.2 MG/DL (1.8-2.4); Phosphorous 2.1 MG/DL (2.5-4.9); Potassium 3.5 MMOL/L (3.5-5.1)
[2016-05-23] MEDS: MINERAL OIL 30 ML UDCUP PO SCH ×2 (08:47→20:14)
[2016-05-23] MEDS: DOCUSATE SODIUM 100 MG CAPSULE PO SCH ×2 (08:48→20:14)
[2016-05-23] MEDS: TAMSULOSIN 0.4 MG CAPSULE PO SCH (08:48)
[2016-05-23] MEDS: PANTOPRAZOLE 40 MG VIAL IV SCH (08:48)
[2016-05-23] MEDS: ENOXAPARIN 40 MG/0.4 ML SYRINGE SUBCUT SCH (12:20)
--- NOTE | 2016-05-23 12:21 | General Surgery Progress Note ---
Assessment and Plan (1) Bowel obstruction Problem details: fluid collection/abscess near ostomy may be causing/ contributing to obstruction/constipation Status: Acute Assessment and plan: 05/16/2016. Patient seemed a little bit better abdomens fairly soft nondistended bowel sounds are active. He did have an enema yesterday and had pretty good results out of it. Reported to me from Dr. Sousa that there is a fullness in the ostomy site there and there is a pocket of fluid near the area in the left lower quadrant. He is about 6 weeks post colectomy for cancer with a in colostomy at this time. He is yet to start any treatments because this was post be done [place]. He had some results with the enema but looks pretty well constipated this time as though he what moving anything through the colostomy and he describes several days of no bowel movements. I don't think there is additional cancer in the colon at this point time but there is a fluid pocket with CT and we may see if we can get that draining case this is have an effect on the colon itself. We'll try some enemas at this point time try to continue to get him cleaned out. May consider a Gastrografin enema if we fail to get any better improvement. 05/17/2016. Patient had little results from the or retention enema from yesterday so we'll try an enema today to see we can still break up some stool and get some of that moving. We'll try some mag citrate to see if we can stimulate things from above the Removed pushed his stool out. He remains a little bit distended and uncomfortable with little bowel movement. I put a finger into the colostomy and I did not feel and narrowing that Dr. Sousa indicated was present. His CT scan did show a fluid pocket near this area and we have consulted radiology about possibility of draining this to see if this will make a difference. Have not seen a report from radiologist at this time. We'll maintain present level of care to see if we can get him better and get things moving it this colon Clean. 05/18/2016. Patient continues to have some problems with constipation even though the x- rays look a little bit better there is still remains stool in the right colon. He had a little complaint of nausea yesterday which may benefit mag citrate unclear at this point. They did at the present NG tube to suction again but it' s clamped now. He has excellent bowel sounds at this point we just not getting much drainage from the colostomy. He did have a percutaneous drainage of this fluid cavity and it did not sound grossly infected I suspect some cultures have been obtained at this time. At this point he is making slow progress and we'll try some more enemas to try to getting a little more clear possible and to have no evidence of any unusual problem of obstruction. If we can get things moving his constipation clear he may get better but when I see any good bit of drainage from the ostomy. We'll try some enemas again today see if I can move things along. 05/20/2016. Patient his not making much progress at this time. Nurses report the seen to be spitting up more than he is actually vomiting. Unfortunately his abdomen remains distended and he remains little uncomfortable taking in very little nourishment by mouth. Colostomy is open wound and we've given several enemas and we still not getting much drainage out of this at this time. Unclear exactly what the clear etiology might be at this point time. Repeat CT scan with contrast will see contrast into the colon we are still remains with a large amount of distended small bowel and some fluid around these loops of bowel. Cultures are pending on the drainage that we drained from the cavity that they removed in radiology. At this point I will probably start a PICC line with some hyper out to get into nourishment. I am concerned that what we are looking at now his extensive metastatic disease of the abdomen with partial bowel obstruction. He may be requiring surgical exploration which would be extremely difficult but we may be faced that if he fails to show any signs of improvement. We'll get oncology way back in on him at this time. 05/23/2016 Patient receiving some hyper out for nutrition at this time. At this point he is not really keeping the bag on the pigtail drainage and it is shown no growth on cultures. At this point is probably reasonable to consider removing it changes see and at the pocket reoccurs. He's reported more drainage from his colostomy he still on clear liquids and we'll advance the diet to see what basically can happen at this time. Its difficult really tell if he is much better he still is somewhat distended bowel sounds are hypoactive. We'll check some x-rays tomorrow and see if there is some way to advance him to solid food. Current Visit: No Qualifiers: Intestinal obstruction type: fecal impaction Qualified Code(s): K56.41 - Fecal impaction Subjective Patient reports: Present: feels better, pain is less, bowel movement, afebrile Exam - Constitutional Vitals: Period Temp Pulse Resp BP Sys/Bruce Pulse Ox Last 24 Hr 98.4 F-98.7 F 75-97 16-18 118-127/69-77 97-99 General appearance: mild distress - Head Head exam: Present: normal inspection - ENT ENT exam: Present: normal exam - Neck Neck exam: Present: normal inspection - Respiratory Respiratory exam: Present: clear to auscultation bilaterally, rales - Cardiovascular Cardiovascular exam: Present: RRR - GI/Abdominal GI/Abdominal exam: Present: distended, hypoactive bowel sounds, soft, other ( colostomy with reported increased drainage. Pigtail catheter with minimal drainage.) - Extremities Exam Extremities exam: Present: normal inspection - Neurological Exam Neurological exam: Present: alert, oriented X3, CN II-XII intact - Skin Skin exam: Present: normal color, warm, dry Results - Labs CBC & BMP: 05/21/16 03:22 05/23/16 05:46 Lab Results: I have reviewed the past 24 hour labs
[2016-05-23] MEDS: ELECTROLYTE CONCENTRATE 40 ML, TRACE ELEMENTS (5) 1 ML, MULTIVITAMIN INJ 10 ML in AMINO... IV SCH (13:00)
[2016-05-23] MEDS: FAT EMULSION 20% 250 ML IV SCH (14:19)
[2016-05-24] MEDS: INSULIN REGULAR 100 UNIT/ML SUBCUT SCH ×4 (00:27→18:10)
[2016-05-24] MEDS: METOCLOPRAMIDE 5 MG TABLET PO SCH ×3 (00:39→17:48)
[2016-05-24] MEDS: MORPHINE 2 MG/1 ML SYRINGE IV PRN ×4 (00:45→17:39)
[2016-05-24] MEDS: ALUMINUM/MAGNES/SIMETH MAX STR 30 ML UDCUP PO SCH ×4 (04:55→21:10)
[2016-05-24] MEDS: DEXTROSE 5% NACL 0.45% 1,000 ML IV SCH ×2 (04:58→18:30)
[2016-05-24 06:24] LABS: Basophils % 0.2 % (0.0-0.8); Eosinophils # 0.3 10*3/uL (0.0-0.87); Eosinophils % 3.4 % (0.00-10.9); Hematocrit 30.9 VOL% (42.0-52.0); Hemoglobin 9.5 GM/DL (14.0-18.0); Immature Granulocytes % 0.3 %; Immature Granulocytes Absolute 0.03 #; Lymphocytes # 1.2 10*3/uL (1.4-4.0); Lymphocytes % 13.6 % (21.2-54.2); Mean Corpuscular HGB Conc 30.7 GM/DL (32-36); Mean Corpuscular Hemoglobin 24 PG (27-34); Mean Corpuscular Volume 77.3 FL (87-102); Monocytes # 1.5 10*3/uL (0.11-0.8); Monocytes % 16.4 % (1.7-12.7); Neutrophils # 5.9 10*3/uL (1.4-7.4); Neutrophils % 66.1 % (38.7-73.9); Platelet Count 303 T/CUMM (130-400); Red Cell Distribution Width 15.5 % (9.3-17.3); White Blood Count 8.9 T/CUMM (4-12)
[2016-05-24 06:48] LABS: Eosinophils 5 % (0-10); Hypochromasia 1+; Lymphocytes 11 % (20-55); Platelet Estimate Adequate; Segmented Neutrophils 69 % (50-85); Total Cells Counted 100
--- NOTE | 2016-05-24 08:07 | XRay Report ---
XR abdomen 2V Indication: Partial bowel obstruction Comparison: Abdominal x-ray dated May 18, 2016 Technique: Frontal views of the abdomen and spine and upright position. Findings: Multiple air-fluid levels noted throughout the abdomen with mild small bowel dilatation suggested. This is consistent with partial small bowel obstruction. Pigtail catheter again projects over the pelvis. Multiple clips noted within the left lower quadrant. Osseous structures appear unchanged. IMPRESSION: As above. PROCEDURE INTERPRETED AT [facility] DEPARTMENT OF RADIOLOGY Final Report Signed by: Dr Yao Beck
[2016-05-24] MEDS: PANTOPRAZOLE 40 MG VIAL IV SCH (08:51)
[2016-05-24] MEDS: TAMSULOSIN 0.4 MG CAPSULE PO SCH (08:55)
[2016-05-24] MEDS: DOCUSATE SODIUM 100 MG CAPSULE PO SCH ×2 (08:56→21:10)
[2016-05-24] MEDS: MINERAL OIL 30 ML UDCUP PO SCH ×2 (08:59→21:29)
[2016-05-24] MEDS: ELECTROLYTE CONCENTRATE 40 ML, TRACE ELEMENTS (5) 1 ML, MULTIVITAMIN INJ 10 ML in AMINO... IV SCH (11:00)
[2016-05-24] MEDS: ENOXAPARIN 40 MG/0.4 ML SYRINGE SUBCUT SCH (11:46)
[2016-05-24] MEDS: FAT EMULSION 20% 250 ML IV SCH (14:08)
--- NOTE | 2016-05-24 17:21 | General Surgery Progress Note ---
Assessment and Plan - Time spent with patient Time spent with patient: Less than 30 minutes (1) Bowel obstruction Problem details: fluid collection/abscess near ostomy may be causing/ contributing to obstruction/constipation Status: Acute Assessment and plan: 05/16/2016. Patient seemed a little bit better abdomens fairly soft nondistended bowel sounds are active. He did have an enema yesterday and had pretty good results out of it. Reported to me from Dr. Sousa that there is a fullness in the ostomy site there and there is a pocket of fluid near the area in the left lower quadrant. He is about 6 weeks post colectomy for cancer with a in colostomy at this time. He is yet to start any treatments because this was post be done [place]. He had some results with the enema but looks pretty well constipated this time as though he what moving anything through the colostomy and he describes several days of no bowel movements. I don't think there is additional cancer in the colon at this point time but there is a fluid pocket with CT and we may see if we can get that draining case this is have an effect on the colon itself. We'll try some enemas at this point time try to continue to get him cleaned out. May consider a Gastrografin enema if we fail to get any better improvement. 05/17/2016. Patient had little results from the or retention enema from yesterday so we'll try an enema today to see we can still break up some stool and get some of that moving. We'll try some mag citrate to see if we can stimulate things from above the Removed pushed his stool out. He remains a little bit distended and uncomfortable with little bowel movement. I put a finger into the colostomy and I did not feel and narrowing that Dr. Sousa indicated was present. His CT scan did show a fluid pocket near this area and we have consulted radiology about possibility of draining this to see if this will make a difference. Have not seen a report from radiologist at this time. We'll maintain present level of care to see if we can get him better and get things moving it this colon Clean. 05/18/2016. Patient continues to have some problems with constipation even though the x- rays look a little bit better there is still remains stool in the right colon. He had a little complaint of nausea yesterday which may benefit mag citrate unclear at this point. They did at the present NG tube to suction again but it' s clamped now. He has excellent bowel sounds at this point we just not getting much drainage from the colostomy. He did have a percutaneous drainage of this fluid cavity and it did not sound grossly infected I suspect some cultures have been obtained at this time. At this point he is making slow progress and we'll try some more enemas to try to getting a little more clear possible and to have no evidence of any unusual problem of obstruction. If we can get things moving his constipation clear he may get better but when I see any good bit of drainage from the ostomy. We'll try some enemas again today see if I can move things along. 05/20/2016. Patient his not making much progress at this time. Nurses report the seen to be spitting up more than he is actually vomiting. Unfortunately his abdomen remains distended and he remains little uncomfortable taking in very little nourishment by mouth. Colostomy is open wound and we've given several enemas and we still not getting much drainage out of this at this time. Unclear exactly what the clear etiology might be at this point time. Repeat CT scan with contrast will see contrast into the colon we are still remains with a large amount of distended small bowel and some fluid around these loops of bowel. Cultures are pending on the drainage that we drained from the cavity that they removed in radiology. At this point I will probably start a PICC line with some hyper out to get into nourishment. I am concerned that what we are looking at now his extensive metastatic disease of the abdomen with partial bowel obstruction. He may be requiring surgical exploration which would be extremely difficult but we may be faced that if he fails to show any signs of improvement. We'll get oncology way back in on him at this time. 05/23/2016 Patient receiving some hyper out for nutrition at this time. At this point he is not really keeping the bag on the pigtail drainage and it is shown no growth on cultures. At this point is probably reasonable to consider removing it changes see and at the pocket reoccurs. He's reported more drainage from his colostomy he still on clear liquids and we'll advance the diet to see what basically can happen at this time. Its difficult really tell if he is much better he still is somewhat distended bowel sounds are hypoactive. We'll check some x-rays tomorrow and see if there is some way to advance him to solid food. 05/24/2016 Patient continues to seen to be doing better being more active and actually getting outside going to smoke which we tried to discourage but he continues to do it anyway. Trying to get the pigtail catheter removed and at same time advancing his diet while cutting back on his central hyperalimentation. Working at this point time with him doing better to try to get him prepared for discharge probably at the into the week. Current Visit: No Qualifiers: Intestinal obstruction type: fecal impaction Qualified Code(s): K56.41 - Fecal impaction Subjective Patient reports: Present: feels better, tolerating liquids well, bowel movement , afebrile Exam - Constitutional Vitals: Period Temp Pulse Resp BP Sys/Bruce Pulse Ox Last 24 Hr 97.0 F-99.0 F 75-88 17-20 123-134/65-77 95-100 General appearance: mild distress - Head Head exam: Present: normal inspection - ENT ENT exam: Present: normal exam - Neck Neck exam: Present: normal inspection - Respiratory Respiratory exam: Present: rales - Cardiovascular Cardiovascular exam: Present: RRR - GI/Abdominal GI/Abdominal exam: Present: hypoactive bowel sounds, soft, other (colostomy is beginning to function now) - Extremities Exam Extremities exam: Present: normal inspection - Neurological Exam Neurological exam: Present: alert, oriented X3, CN II-XII intact - Skin Skin exam: Present: normal color, warm, dry Results - Labs CBC & BMP: 05/24/16 06:12 05/23/16 05:46 Lab Results: I have reviewed the past 24 hour labs
[2016-05-24] MEDS: ONDANSETRON 4 MG/2 ML VIAL IV PRN (17:42)
[2016-05-24] MEDS: DEXTROSE IV SCH (17:48)
[2016-05-24] MEDS: ELECTROLYTE IV SCH (17:48)
[2016-05-24] MEDS: TRACE ELEMENTS IV SCH (17:48)
[2016-05-24] MEDS: [UNRECOGNIZED DRUG - OTHER] IV SCH (17:48)
[2016-05-25] MEDS: MORPHINE 2 MG/1 ML SYRINGE IV PRN ×4 (00:40→18:30)
[2016-05-25] MEDS: INSULIN REGULAR 100 UNIT/ML SUBCUT SCH ×4 (01:03→18:03)
[2016-05-25] MEDS: ALUMINUM/MAGNES/SIMETH MAX STR 30 ML UDCUP PO SCH ×4 (03:12→21:31)
[2016-05-25] MEDS: METOCLOPRAMIDE 5 MG TABLET PO SCH ×3 (03:13→16:37)
[2016-05-25] MEDS: MINERAL OIL 30 ML UDCUP PO SCH ×2 (09:08→21:31)
[2016-05-25] MEDS: DOCUSATE SODIUM 100 MG CAPSULE PO SCH ×2 (09:08→21:31)
[2016-05-25] MEDS: TAMSULOSIN 0.4 MG CAPSULE PO SCH (09:09)
[2016-05-25] MEDS: PANTOPRAZOLE 40 MG VIAL IV SCH (09:10)
[2016-05-25] MEDS: ENOXAPARIN 40 MG/0.4 ML SYRINGE SUBCUT SCH (11:42)
[2016-05-25] MEDS: TRACE ELEMENTS IV SCH (13:30)
[2016-05-25] MEDS: ELECTROLYTE IV SCH (13:30)
[2016-05-25] MEDS: DEXTROSE IV SCH (13:30)
[2016-05-25] MEDS: [UNRECOGNIZED DRUG - OTHER] IV SCH (13:30)
--- NOTE | 2016-05-25 13:44 | General Surgery Progress Note ---
Assessment and Plan (1) Bowel obstruction Problem details: fluid collection/abscess near ostomy may be causing/ contributing to obstruction/constipation Status: Acute Assessment and plan: 05/25/16 Stable abdominal pain. There is nothing at this point to suggest a true obstruction. We'll continue to watch; if he continues having stools and no further nausea, we may be able to discharge tomorrow or Monday. 05/19/16 Abdominal pain and possible obstipation/obstruction. We'll plan gastrograffin CT in am to check for changes. I've asked staff to specifically record details of any emesis, especially since he's pulled out his NG tube. Current Visit: No Qualifiers: Intestinal obstruction type: fecal impaction Qualified Code(s): K56.41 - Fecal impaction Subjective Patient reports: Present: no new complaints, other (No nausea/vomiting at present; pt says he did 'throw up' last night. When questioned, he says it was ' a little bit, about a cupful,' and says character was 'food.' Denies pain at present.) Exam - Constitutional Vitals: Period Temp Pulse Resp BP Sys/Bruce Pulse Ox Last 24 Hr 97.0 F-98.7 F 80-88 17-18 123-152/65-79 97-100 General appearance: no acute distress, other (Sitting up in chair. Brown stool in bag. No shortness of breath. ) - Respiratory Respiratory exam: Present: clear to auscultation bilaterally, other (Poor inspiratory effort. ). Absent: rhonchi - Cardiovascular Cardiovascular exam: Present: RRR - GI/Abdominal GI/Abdominal exam: Present: normal bowel sounds, soft - Extremities Exam Extremities exam: Present: normal inspection Results - Labs CBC & BMP: 05/24/16 06:12 05/23/16 05:46
[2016-05-25] MEDS: ONDANSETRON 4 MG/2 ML VIAL IV PRN (18:08)
[2016-05-25] MEDS: DEXTROSE 5% NACL 0.45% 1,000 ML IV SCH (18:30)
[2016-05-26] MEDS: INSULIN REGULAR 100 UNIT/ML SUBCUT SCH ×4 (00:39→18:00)
[2016-05-26] MEDS: METOCLOPRAMIDE 5 MG TABLET PO SCH ×2 (00:40→10:46)
[2016-05-26] MEDS: MORPHINE 2 MG/1 ML SYRINGE IV PRN ×4 (00:42→18:02)
[2016-05-26] MEDS: ALUMINUM/MAGNES/SIMETH MAX STR 30 ML UDCUP PO SCH ×4 (02:23→15:00)
[2016-05-26 07:20] LABS: Calcium 8.8 MG/DL (8.5-10.1); Magnesium 2.3 MG/DL (1.8-2.4); Osmolality,Calculated 281.1 MOS/KG (273-304); Phosphorous 2.4 MG/DL (2.5-4.9); Potassium 3.6 MMOL/L (3.5-5.1)
[2016-05-26] MEDS: PANTOPRAZOLE 40 MG VIAL IV SCH (08:29)
[2016-05-26] MEDS: DOCUSATE SODIUM 100 MG CAPSULE PO SCH ×2 (10:46→21:28)
[2016-05-26] MEDS: TAMSULOSIN 0.4 MG CAPSULE PO SCH (10:47)
[2016-05-26] MEDS: MINERAL OIL 30 ML UDCUP PO SCH (10:48)
[2016-05-26] MEDS: ENOXAPARIN 40 MG/0.4 ML SYRINGE SUBCUT SCH (12:03)
--- NOTE | 2016-05-26 12:34 | XRay Report ---
History: Abdominal pain and distention. Nausea Date: 05/26/2016 Study: Flat and erect abdomen Comparison exam: May 24, 2016 abdominal x-ray A left lower quadrant pigtail drainage catheter has been removed from the left hemipelvis since the comparison study. A left lower quadrant colostomy is noted. There is no evidence of pneumoperitoneum. Nonspecific fluid levels are noted in large and small bowel on the upright view. There is gaseous distention of both large and small bowel, with small bowel distention perhaps mildly disproportionate. Surgical clips and yocasta overlie the left lower abdomen. Osseous structures are unchanged. Impression: Ileus versus low-grade partial small bowel obstruction. Increased gaseous distention of bowel compared to the previous study. Interval removal of the pelvic abscess drainage catheter PROCEDURE INTERPRETED AT [facility] DEPARTMENT OF RADIOLOGY Final Report Signed by: Dr. Christie Bhat
[2016-05-26] MEDS: DEXTROSE 5% NACL 0.45% 1,000 ML IV SCH ×6 (16:45→23:21)
[2016-05-26] MEDS: ALUMINUM/MAGNES/SIMETH MAX STR 30 ML UDCUP NG SCH ×2 (17:15→21:30)
[2016-05-26] MEDS: METOCLOPRAMIDE 10 MG/2 ML VIAL IV SCH (17:30)
--- NOTE | 2016-05-26 17:44 | XRay Report ---
Portable chest Date: 05/26/2016 Clinical history: Nasogastric tube placement Comparison: 03/24/2016 Technique: Portable AP sitting chest Findings: The heart is normal in size. Decreased but persistent diffuse parenchymal findings at the lung bases. Stable left arm PICC line. The tip of the nasogastric tube projects in satisfactory position in the stomach. No acute osseous findings. Impression: The nasogastric tube is in satisfactory position. Reduced atelectasis/infiltration/edema at the lung bases. Stable left arm PICC line. PROCEDURE INTERPRETED AT [facility] DEPARTMENT OF RADIOLOGY Final Report Signed by: Dr. Darlene Mejia
[2016-05-26] MEDS: ONDANSETRON 4 MG/2 ML VIAL IV PRN (18:02)
[2016-05-26] MEDS: MINERAL OIL 30 ML UDCUP NG SCH (21:29)
[2016-05-27] MEDS: INSULIN REGULAR 100 UNIT/ML SUBCUT SCH ×4 (00:13→18:03)
[2016-05-27] MEDS: METOCLOPRAMIDE 10 MG/2 ML VIAL IV SCH ×3 (00:25→16:43)
[2016-05-27] MEDS: MORPHINE 2 MG/1 ML SYRINGE IV PRN ×4 (00:25→19:02)
[2016-05-27] MEDS: ONDANSETRON 4 MG/2 ML VIAL IV PRN ×2 (00:25→06:08)
[2016-05-27] MEDS: ALUMINUM/MAGNES/SIMETH MAX STR 30 ML UDCUP NG SCH ×4 (04:44→21:59)
[2016-05-27] MEDS: DEXTROSE 5% NACL 0.45% 1,000 ML IV SCH ×3 (06:09→22:00)
--- NOTE | 2016-05-27 08:38 | CT Report ---
CT abdomen pelvis w con Indication: Recurrent SBO, history of colon cancer Comparison: CT abdomen pelvis dated May 20, 2016 Technique: Multiple axial tomographic images of the abdomen and pelvis were obtained after the administration of 100 cc Omnipaque 350 intravenous contrast. Findings: Emphysematous changes of the bilateral lung bases present. Mild atelectasis of the bilateral lung bases. Small right pleural effusion. Necrotic appearing lymphadenopathy demonstrated within the anterior supradiaphragmatic location. Rn Transport lesion measures up to 3 cm in axial dimension. Incompletely characterized 1.1 cm hypodense lesion within the left lobe of the liver. Gallbladder, pancreas, and spleen appear grossly unchanged. Bilateral adrenal glands and kidneys appear grossly unchanged. Occasional subcentimeter hypodensities are redemonstrated within the kidneys which are too small to characterize but may reflect cysts. Urinary bladder incompletely distended. Prostate appears somewhat prominent. Postsurgical change consistent with rectal pouch and left colostomy noted. There is ill-defined omental nodularity. Scattered small abdominal ascites. There is significant dilatation of small bowel within the left upper quadrant with transition point suggested within the left mid abdomen. Small bowel measures up to 6.1 cm. Contrast material noted past this transition point. Small peripherally enhancing fluid collection within the ventral left lower quadrant measuring up to 2.4 x 0.8 cm in largest axial dimension. Adjacent peripherally enhancing fluid collection measures up to 4.3 x 1.3 cm in largest axial dimension. Osseous and surrounding soft tissue structures appear grossly unchanged. Mild atherosclerotic calcifications present. IMPRESSION: There is significant dilatation of small bowel within the left upper quadrant with transition point suggested within the left mid abdomen. Contrast material noted past this transition point. Findings suggestive of partial small bowel obstruction. There is necrotic supradiaphragmatic lymphadenopathy as well as omental nodularity consistent with metastasis/carcinomatosis. There is small scattered ascites as well as small right pleural fluid. There is an indeterminate 1.1 cm lesion within the left lobe of the liver. Small peripherally enhancing fluid collection within the ventral left lower quadrant measuring up to 2.4 x 0.8 cm in largest axial dimension. Adjacent peripherally enhancing fluid collection measures up to 4.3 x 1.3 cm in largest axial dimension. Sterility of these collections is uncertain. PROCEDURE INTERPRETED AT [facility] DEPARTMENT OF RADIOLOGY Final Report Signed by: Dr Yao Beck
[2016-05-27] MEDS: DOCUSATE SODIUM 100 MG CAPSULE PO SCH ×2 (09:06→20:51)
[2016-05-27] MEDS: MINERAL OIL 30 ML UDCUP NG SCH ×2 (09:06→20:55)
[2016-05-27] MEDS: PANTOPRAZOLE 40 MG VIAL IV SCH (09:06)
[2016-05-27] MEDS: TAMSULOSIN 0.4 MG CAPSULE PO SCH (09:06)
[2016-05-27] MEDS: ENOXAPARIN 40 MG/0.4 ML SYRINGE SUBCUT SCH (14:56)
--- NOTE | 2016-05-27 19:08 | General Surgery Progress Note ---
Assessment and Plan - Time spent with patient Time spent with patient: Less than 30 minutes (1) Bowel obstruction Problem details: fluid collection/abscess near ostomy may be causing/ contributing to obstruction/constipation Status: Acute Assessment and plan: 05/16/2016. Patient seemed a little bit better abdomens fairly soft nondistended bowel sounds are active. He did have an enema yesterday and had pretty good results out of it. Reported to me from Dr. Sousa that there is a fullness in the ostomy site there and there is a pocket of fluid near the area in the left lower quadrant. He is about 6 weeks post colectomy for cancer with a in colostomy at this time. He is yet to start any treatments because this was post be done [place]. He had some results with the enema but looks pretty well constipated this time as though he what moving anything through the colostomy and he describes several days of no bowel movements. I don't think there is additional cancer in the colon at this point time but there is a fluid pocket with CT and we may see if we can get that draining case this is have an effect on the colon itself. We'll try some enemas at this point time try to continue to get him cleaned out. May consider a Gastrografin enema if we fail to get any better improvement. 05/17/2016. Patient had little results from the or retention enema from yesterday so we'll try an enema today to see we can still break up some stool and get some of that moving. We'll try some mag citrate to see if we can stimulate things from above the Removed pushed his stool out. He remains a little bit distended and uncomfortable with little bowel movement. I put a finger into the colostomy and I did not feel and narrowing that Dr. Sousa indicated was present. His CT scan did show a fluid pocket near this area and we have consulted radiology about possibility of draining this to see if this will make a difference. Have not seen a report from radiologist at this time. We'll maintain present level of care to see if we can get him better and get things moving it this colon Clean. 05/18/2016. Patient continues to have some problems with constipation even though the x- rays look a little bit better there is still remains stool in the right colon. He had a little complaint of nausea yesterday which may benefit mag citrate unclear at this point. They did at the present NG tube to suction again but it' s clamped now. He has excellent bowel sounds at this point we just not getting much drainage from the colostomy. He did have a percutaneous drainage of this fluid cavity and it did not sound grossly infected I suspect some cultures have been obtained at this time. At this point he is making slow progress and we'll try some more enemas to try to getting a little more clear possible and to have no evidence of any unusual problem of obstruction. If we can get things moving his constipation clear he may get better but when I see any good bit of drainage from the ostomy. We'll try some enemas again today see if I can move things along. 05/20/2016. Patient his not making much progress at this time. Nurses report the seen to be spitting up more than he is actually vomiting. Unfortunately his abdomen remains distended and he remains little uncomfortable taking in very little nourishment by mouth. Colostomy is open wound and we've given several enemas and we still not getting much drainage out of this at this time. Unclear exactly what the clear etiology might be at this point time. Repeat CT scan with contrast will see contrast into the colon we are still remains with a large amount of distended small bowel and some fluid around these loops of bowel. Cultures are pending on the drainage that we drained from the cavity that they removed in radiology. At this point I will probably start a PICC line with some hyper out to get into nourishment. I am concerned that what we are looking at now his extensive metastatic disease of the abdomen with partial bowel obstruction. He may be requiring surgical exploration which would be extremely difficult but we may be faced that if he fails to show any signs of improvement. We'll get oncology way back in on him at this time. 05/23/2016 Patient receiving some hyper out for nutrition at this time. At this point he is not really keeping the bag on the pigtail drainage and it is shown no growth on cultures. At this point is probably reasonable to consider removing it changes see and at the pocket reoccurs. He's reported more drainage from his colostomy he still on clear liquids and we'll advance the diet to see what basically can happen at this time. Its difficult really tell if he is much better he still is somewhat distended bowel sounds are hypoactive. We'll check some x-rays tomorrow and see if there is some way to advance him to solid food. 05/24/2016 Patient continues to seen to be doing better being more active and actually getting outside going to smoke which we tried to discourage but he continues to do it anyway. Trying to get the pigtail catheter removed and at same time advancing his diet while cutting back on his central hyperalimentation. Working at this point time with him doing better to try to get him prepared for discharge probably at the into the week. 05/27/2016 Patient is a little bit better at this point time with a little less nausea since we had an NG tube down. He is having some function to the colostomy at this point and his abdomen has good bowel sounds we still complains of discomfort. He had a CT scan abdomen and pelvis again showed small bowel obstruction with a narrow area down low. I have had discussions with patient and his about the situation that we are facing up. I'm not sure they clearly understand but I tried to emphasize to him that surgery may be extremely difficult and that there may not be much we can do because this may not be just adhesions but may be related to recurrent cancer in the abdomen. I think they understand although I think further discussion to try to clarify things for them with be important. At this point go ahead after talking them and set him up for surgery on Monday unless something S changes in the meantime. Current Visit: No Qualifiers: Intestinal obstruction type: fecal impaction Qualified Code(s): K56.41 - Fecal impaction Subjective Patient reports: Present: still having pain, bowel movement, nausea, afebrile. Absent: vomiting Exam - Constitutional Vitals: Period Temp Pulse Resp BP Sys/Bruce Pulse Ox Last 24 Hr 97.4 F-98.8 F 86-94 20-20 113-133/64-78 96-99 General appearance: mild distress - Head Head exam: Present: normal inspection - ENT ENT exam: Present: normal exam - Neck Neck exam: Present: normal inspection - Respiratory Respiratory exam: Present: rales, rhonchi - Cardiovascular Cardiovascular exam: Present: RRR - GI/Abdominal GI/Abdominal exam: Present: normal bowel sounds, soft, other (colostomy with some function still minimal NG tube drainage). Absent: tenderness - Extremities Exam Extremities exam: Present: normal inspection - Neurological Exam Neurological exam: Present: alert, oriented X3, CN II-XII intact - Skin Skin exam: Present: normal color, warm, dry Results - Labs CBC & BMP: 05/24/16 06:12 05/26/16 06:34 Lab Results: I have reviewed the past 24 hour labs Specialty Discharge - Follow Up or Referrals Follow up with: Bo Baxter MD [Physician] -
[2016-05-28] MEDS: METOCLOPRAMIDE 10 MG/2 ML VIAL IV SCH ×3 (00:31→17:01)
[2016-05-28] MEDS: INSULIN REGULAR 100 UNIT/ML SUBCUT SCH ×3 (00:31→12:15)
[2016-05-28] MEDS: ALUMINUM/MAGNES/SIMETH MAX STR 30 ML UDCUP NG SCH ×3 (04:37→17:01)
[2016-05-28 05:40] LABS: Basophils % 0.3 % (0.0-0.8); Eosinophils # 0.2 10*3/uL (0.0-0.87); Eosinophils % 2.6 % (0.00-10.9); Hematocrit 31.1 VOL% (42.0-52.0); Hemoglobin 9.7 GM/DL (14.0-18.0); Immature Granulocytes % 0.4 %; Immature Granulocytes Absolute 0.03 #; Lymphocytes # 1.1 10*3/uL (1.4-4.0); Lymphocytes % 14.4 % (21.2-54.2); Mean Corpuscular HGB Conc 31.2 GM/DL (32-36); Mean Corpuscular Hemoglobin 24 PG (27-34); Mean Platelet Volume 9.5 FL (9.6-12.0); Monocytes # 1.5 10*3/uL (0.11-0.8); Monocytes % 19.5 % (1.7-12.7); Neutrophils # 4.8 10*3/uL (1.4-7.4); Neutrophils % 62.8 % (38.7-73.9); Platelet Count 330 T/CUMM (130-400); Red Blood Count 4.09 MC/CUMM (3.8-5.5); Red Cell Distribution Width 15.5 % (9.3-17.3); White Blood Count 7.6 T/CUMM (4-12)
[2016-05-28 05:43] LABS: INR 1.1; Partial Thromboplastin Time 30.4 SECS (0-40)
[2016-05-28 05:57] LABS: Calcium 8.3 MG/DL (8.5-10.1); Magnesium 2.2 MG/DL (1.8-2.4); Osmolality,Calculated 278.1 MOS/KG (273-304); Potassium 3.7 MMOL/L (3.5-5.1)
[2016-05-28 06:06] LABS: Elliptocytes Few; Eosinophils 4 % (0-10); Hypochromasia 1+; Lymphocytes 14 % (20-55); Platelet Estimate Adequate; Segmented Neutrophils 70 % (50-85); Total Cells Counted 100
--- NOTE | 2016-05-28 08:40 | EKG Report ---
Stationary ECG Study [facility] Test Date: 05/28/2016 8:40 AM Pat Name: CHASITY HOWE Department: Room: 341 Gender: M [employer]: ERNESTO : 1960 Requested by: Bo Baxter Order Number: [id number] Reading MD: PACO MENDOZA Intervals [place] Rate: 71 P: 83 W[place]: 159 QRS: 78 QRSD: 79 T: 68 QT: 393 QTc: 415 Interpretive Statements SINUS RHYTHM Electronically Signed On 05-28-16 17:48:06 THERAPEUTIC ASSISTANT by PACO MENDOZA [email or web address]
[2016-05-28] MEDS: DOCUSATE SODIUM 100 MG CAPSULE PO SCH ×3 (08:56→21:08)
[2016-05-28] MEDS: TAMSULOSIN 0.4 MG CAPSULE PO SCH (08:56)
[2016-05-28] MEDS: MINERAL OIL 30 ML UDCUP NG SCH ×3 (08:56→21:08)
[2016-05-28] MEDS: PANTOPRAZOLE 40 MG VIAL IV SCH (09:01)
--- NOTE | 2016-05-28 09:33 | XRay Report ---
History: Shortness of breath Date: 05/28/2016 Study: Chest x-ray PA and lateral Comparison exam: Chest x-ray May 26, 2016 The nasogastric tube is well-positioned. The left PICC line is unchanged. There is some mild strandy subsegmental atelectasis in the lung bases, grossly similar. There is minimal right-sided pleural effusion. The upper lungs are clear. The cardiomediastinal silhouette and pulmonary vasculature are unchanged. Osseous structures are similar. Impression: Mild platelike subsegmental atelectasis in the lung bases as before. Small right pleural effusion PROCEDURE INTERPRETED AT [facility] DEPARTMENT OF RADIOLOGY Final Report Signed by: Dr. Christie Bhat
[2016-05-28] MEDS: DEXTROSE 5% NACL 0.45% 1,000 ML IV SCH ×4 (09:38→22:09)
--- NOTE | 2016-05-28 10:06 | General Surgery Progress Note ---
Assessment and Plan - Time spent with patient Time spent with patient: Less than 30 minutes (1) Bowel obstruction Problem details: fluid collection/abscess near ostomy may be causing/ contributing to obstruction/constipation Status: Acute Assessment and plan: 05/28/16 Intermittent bowel obstruction-this appears somewhat better at this time. We have explained to him that this may not have resolved but it has obviously improved, so we'll postpone surgery at least until Monday. We've further tried to explain the entire picture, that this may be a phenomenon of metatastic disease and may prove continuous and/or recurrent, such that surgery may or may not cure. Since he's comfortable, we'll clamp the NG and allow him full liquids. 05/25/16 Stable abdominal pain. There is nothing at this point to suggest a true obstruction. We'll continue to watch; if he continues having stools and no further nausea, we may be able to discharge tomorrow or Monday. 05/19/16 Abdominal pain and possible obstipation/obstruction. We'll plan gastrograffin CT in am to check for changes. I've asked staff to specifically record details of any emesis, especially since he's pulled out his NG tube. Current Visit: No Qualifiers: Intestinal obstruction type: fecal impaction Qualified Code(s): K56.41 - Fecal impaction Subjective Patient reports: Present: feels better, pain is less, tolerating liquids well, other (Lots of stool in ostomy bag and he says he's feeling much better. ) Exam - Constitutional Vitals: Period Temp Pulse Resp BP Sys/Bruce Pulse Ox Last 24 Hr 97.4 F-98.5 F 67-88 18-20 104-124/63-74 94-98 General appearance: no acute distress - GI/Abdominal GI/Abdominal exam: Present: normal bowel sounds, soft, other (Large volumes of semi liquid brown stool in ostomy bag.). Absent: tenderness Results - Labs CBC & BMP: 05/28/16 03:54 05/28/16 03:54 Lab Results: I have reviewed the past 24 hour labs Specialty Discharge - Follow Up or Referrals Follow up with: Bo Baxter MD [Physician] -
--- NOTE | 2016-05-28 10:36 | Event Note ---
I was asked to see Mr. Goel today and make recommendations from an oncology standpoint. He is not present in the room at this time so I'll revisit tomorrow to discuss his case with him. It appears that he is admitted for bowel obstruction symptoms. Recent CT scan shows very concerning findings for diffuse abdominal involvement with malignancy. Reviewing his pathology from February shows a very advanced at minimal stage IIIc colon cancer. Given the numerous tumor deposits throughout the colon and the number of lymph nodes involved, I feel like he was most likely metastatic at that time. It is worth noting that his CEA and CA-19-9 levels are normal though. He is followed and start will from an oncology standpoint. I'm unsure whether long-term plan is. Given his current sickness, I do not see how chemotherapy would benefit him at this time. His prognosis is extremely poor even if his bowel obstructive symptoms resolved. I will express this to the patient and his once I'm able to get some in the room. I'll revisit tomorrow.
[2016-05-28] MEDS: MORPHINE 2 MG/1 ML SYRINGE IV PRN ×2 (12:19→19:09)
[2016-05-28] MEDS: ENOXAPARIN 40 MG/0.4 ML SYRINGE SUBCUT SCH (12:19)
[2016-05-29] MEDS: MORPHINE 2 MG/1 ML SYRINGE IV PRN ×4 (01:19→23:03)
[2016-05-29] MEDS: METOCLOPRAMIDE 10 MG/2 ML VIAL IV SCH ×4 (01:19→23:44)
[2016-05-29] MEDS: INSULIN REGULAR 100 UNIT/ML SUBCUT SCH ×5 (01:20→23:06)
[2016-05-29] MEDS: ALUMINUM/MAGNES/SIMETH MAX STR 30 ML UDCUP NG SCH ×5 (03:06→22:26)
[2016-05-29 04:44] LABS: Basophils % 0.4 % (0.0-0.8); Eosinophils # 0.2 10*3/uL (0.0-0.87); Eosinophils % 2.8 % (0.00-10.9); Hematocrit 31.9 VOL% (42.0-52.0); Immature Granulocytes % 0.4 %; Immature Granulocytes Absolute 0.03 #; Lymphocytes # 1.3 10*3/uL (1.4-4.0); Lymphocytes % 15.3 % (21.2-54.2); Mean Corpuscular HGB Conc 31.3 GM/DL (32-36); Mean Corpuscular Hemoglobin 24 PG (27-34); Mean Corpuscular Volume 75.8 FL (87-102); Mean Platelet Volume 9.5 FL (9.6-12.0); Monocytes # 1.2 10*3/uL (0.11-0.8); Monocytes % 15.1 % (1.7-12.7); Neutrophils # 5.4 10*3/uL (1.4-7.4); Platelet Count 313 T/CUMM (130-400); Red Blood Count 4.21 MC/CUMM (3.8-5.5); Red Cell Distribution Width 15.6 % (9.3-17.3); White Blood Count 8.2 T/CUMM (4-12)
[2016-05-29] MEDS: DEXTROSE 5% NACL 0.45% 1,000 ML IV SCH ×2 (04:57→22:25)
[2016-05-29 05:21] LABS: Albumin 2.4 G/DL (3.4-5.0); Bilirubin,Total 0.4 MG/DL (0.2-1.0); Calcium 8.6 MG/DL (8.5-10.1); Osmolality,Calculated 282.8 MOS/KG (273-304); Potassium 3.7 MMOL/L (3.5-5.1)
[2016-05-29] MEDS: MINERAL OIL 30 ML UDCUP NG SCH ×2 (09:45→22:26)
[2016-05-29] MEDS: PANTOPRAZOLE 40 MG VIAL IV SCH (10:06)
[2016-05-29] MEDS: TAMSULOSIN 0.4 MG CAPSULE PO SCH (10:10)
[2016-05-29] MEDS: DOCUSATE SODIUM 100 MG CAPSULE PO SCH ×2 (10:11→22:26)
--- NOTE | 2016-05-29 10:22 | General Surgery Progress Note ---
Assessment and Plan - Time spent with patient Time spent with patient: Less than 30 minutes (1) Bowel obstruction Problem details: fluid collection/abscess near ostomy may be causing/ contributing to obstruction/constipation Status: Acute Assessment and plan: 05/16/2016. Patient seemed a little bit better abdomens fairly soft nondistended bowel sounds are active. He did have an enema yesterday and had pretty good results out of it. Reported to me from Dr. Sousa that there is a fullness in the ostomy site there and there is a pocket of fluid near the area in the left lower quadrant. He is about 6 weeks post colectomy for cancer with a in colostomy at this time. He is yet to start any treatments because this was post be done [place]. He had some results with the enema but looks pretty well constipated this time as though he what moving anything through the colostomy and he describes several days of no bowel movements. I don't think there is additional cancer in the colon at this point time but there is a fluid pocket with CT and we may see if we can get that draining case this is have an effect on the colon itself. We'll try some enemas at this point time try to continue to get him cleaned out. May consider a Gastrografin enema if we fail to get any better improvement. 05/17/2016. Patient had little results from the or retention enema from yesterday so we'll try an enema today to see we can still break up some stool and get some of that moving. We'll try some mag citrate to see if we can stimulate things from above the Removed pushed his stool out. He remains a little bit distended and uncomfortable with little bowel movement. I put a finger into the colostomy and I did not feel and narrowing that Dr. Sousa indicated was present. His CT scan did show a fluid pocket near this area and we have consulted radiology about possibility of draining this to see if this will make a difference. Have not seen a report from radiologist at this time. We'll maintain present level of care to see if we can get him better and get things moving it this colon Clean. 05/18/2016. Patient continues to have some problems with constipation even though the x- rays look a little bit better there is still remains stool in the right colon. He had a little complaint of nausea yesterday which may benefit mag citrate unclear at this point. They did at the present NG tube to suction again but it' s clamped now. He has excellent bowel sounds at this point we just not getting much drainage from the colostomy. He did have a percutaneous drainage of this fluid cavity and it did not sound grossly infected I suspect some cultures have been obtained at this time. At this point he is making slow progress and we'll try some more enemas to try to getting a little more clear possible and to have no evidence of any unusual problem of obstruction. If we can get things moving his constipation clear he may get better but when I see any good bit of drainage from the ostomy. We'll try some enemas again today see if I can move things along. 05/20/2016. Patient his not making much progress at this time. Nurses report the seen to be spitting up more than he is actually vomiting. Unfortunately his abdomen remains distended and he remains little uncomfortable taking in very little nourishment by mouth. Colostomy is open wound and we've given several enemas and we still not getting much drainage out of this at this time. Unclear exactly what the clear etiology might be at this point time. Repeat CT scan with contrast will see contrast into the colon we are still remains with a large amount of distended small bowel and some fluid around these loops of bowel. Cultures are pending on the drainage that we drained from the cavity that they removed in radiology. At this point I will probably start a PICC line with some hyper out to get into nourishment. I am concerned that what we are looking at now his extensive metastatic disease of the abdomen with partial bowel obstruction. He may be requiring surgical exploration which would be extremely difficult but we may be faced that if he fails to show any signs of improvement. We'll get oncology way back in on him at this time. 05/23/2016 Patient receiving some hyper out for nutrition at this time. At this point he is not really keeping the bag on the pigtail drainage and it is shown no growth on cultures. At this point is probably reasonable to consider removing it changes see and at the pocket reoccurs. He's reported more drainage from his colostomy he still on clear liquids and we'll advance the diet to see what basically can happen at this time. Its difficult really tell if he is much better he still is somewhat distended bowel sounds are hypoactive. We'll check some x-rays tomorrow and see if there is some way to advance him to solid food. 05/24/2016 Patient continues to seen to be doing better being more active and actually getting outside going to smoke which we tried to discourage but he continues to do it anyway. Trying to get the pigtail catheter removed and at same time advancing his diet while cutting back on his central hyperalimentation. Working at this point time with him doing better to try to get him prepared for discharge probably at the into the week. 05/27/2016 Patient is a little bit better at this point time with a little less nausea since we had an NG tube down. He is having some function to the colostomy at this point and his abdomen has good bowel sounds we still complains of discomfort. He had a CT scan abdomen and pelvis again showed small bowel obstruction with a narrow area down low. I have had discussions with patient and his about the situation that we are facing up. I'm not sure they clearly understand but I tried to emphasize to him that surgery may be extremely difficult and that there may not be much we can do because this may not be just adhesions but may be related to recurrent cancer in the abdomen. I think they understand although I think further discussion to try to clarify things for them with be important. At this point go ahead after talking them and set him up for surgery on Monday unless something S changes in the meantime. 05/29/2016 Dr. Rivera has discussed the situation with the patient as well as myself about the high risk for surgery and complications due to the possibility that this is all metastatic disease causing the obstruction. At this time he seems to be tolerating full liquids without any nausea and vomiting. He was to delay the surgery for now and we'll see if we can get him on a full liquid diet that he can support his nutrition on and hopefully getting back to get some chemotherapy started. Current Visit: No Qualifiers: Intestinal obstruction type: fecal impaction Qualified Code(s): K56.41 - Fecal impaction Subjective Patient reports: Present: no new complaints, bowel movement, nausea (possible), afebrile Exam - Constitutional Vitals: Period Temp Pulse Resp BP Sys/Bruce Pulse Ox Last 24 Hr 97.5 F-98.3 F 81-88 17-22 97-124/52-72 94-99 General appearance: mild distress - Head Head exam: Present: normal inspection - ENT ENT exam: Present: normal exam - Neck Neck exam: Present: normal inspection - Respiratory Respiratory exam: Present: rales - Cardiovascular Cardiovascular exam: Present: RRR - GI/Abdominal GI/Abdominal exam: Present: distended, hypoactive bowel sounds, soft, other ( function in the colostomy) - Extremities Exam Extremities exam: Present: normal inspection - Neurological Exam Neurological exam: Present: alert, oriented X3, CN II-XII intact - Skin Skin exam: Present: normal color, warm, dry Results - Labs CBC & BMP: 05/29/16 04:00 05/29/16 04:00 Lab Results: I have reviewed the past 24 hour labs Specialty Discharge - Follow Up or Referrals Follow up with: Bo Baxter MD [Physician] -
[2016-05-29] MEDS: ENOXAPARIN 40 MG/0.4 ML SYRINGE SUBCUT SCH (13:36)
[2016-05-30] MEDS: MORPHINE 2 MG/1 ML SYRINGE IV PRN ×2 (04:30→10:40)
[2016-05-30] MEDS: ALUMINUM/MAGNES/SIMETH MAX STR 30 ML UDCUP NG SCH ×2 (04:31→09:25)
[2016-05-30] MEDS: DEXTROSE 5% NACL 0.45% 1,000 ML IV SCH ×5 (05:15→14:30)
[2016-05-30] MEDS: INSULIN REGULAR 100 UNIT/ML SUBCUT SCH ×3 (05:53→12:00)
[2016-05-30] MEDS ORDERED: ceFAZolin 2,000 MG in PREMIX 1 EACH IV ONE (07:00)
[2016-05-30 07:05] LABS: Basophils % 0.2 % (0.0-0.8); Eosinophils # 0.3 10*3/uL (0.0-0.87); Hematocrit 32.3 VOL% (42.0-52.0); Hemoglobin 10.1 GM/DL (14.0-18.0); Immature Granulocytes % 0.2 %; Immature Granulocytes Absolute 0.02 #; Lymphocytes # 1.6 10*3/uL (1.4-4.0); Lymphocytes % 18.7 % (21.2-54.2); Mean Corpuscular HGB Conc 31.3 GM/DL (32-36); Mean Corpuscular Hemoglobin 24 PG (27-34); Mean Corpuscular Volume 75.6 FL (87-102); Mean Platelet Volume 9.1 FL (9.6-12.0); Monocytes # 1.1 10*3/uL (0.11-0.8); Monocytes % 12.8 % (1.7-12.7); Neutrophils # 5.6 10*3/uL (1.4-7.4); Neutrophils % 65.1 % (38.7-73.9); Platelet Count 342 T/CUMM (130-400); Red Blood Count 4.27 MC/CUMM (3.8-5.5); Red Cell Distribution Width 15.5 % (9.3-17.3); White Blood Count 8.7 T/CUMM (4-12)
[2016-05-30 07:42] LABS: Calcium 8.4 MG/DL (8.5-10.1); Magnesium 2.1 MG/DL (1.8-2.4); Osmolality,Calculated 281.8 MOS/KG (273-304); Potassium 3.3 MMOL/L (3.5-5.1)
[2016-05-30] MEDS: TAMSULOSIN 0.4 MG CAPSULE PO SCH (09:13)
[2016-05-30] MEDS: METOCLOPRAMIDE 10 MG/2 ML VIAL IV SCH (09:17)
[2016-05-30] MEDS: PANTOPRAZOLE 40 MG VIAL IV SCH (09:20)
[2016-05-30] MEDS: MINERAL OIL 30 ML UDCUP NG SCH (09:25)
[2016-05-30] MEDS: DOCUSATE SODIUM 100 MG CAPSULE PO SCH (09:26)
--- NOTE | 2016-05-30 10:28 | Discharge Summary ---
Hospital Course - Hospital Course Hospital Course: Discharge Summary 05/30/16 Diagnosis: 1. Small bowel obstruction 2. Advanced Stage IIIc Colon cancer with probable metastatic disease 3. Constipation 4. 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 He was scheduled for follow up chemotherapy in [place], [place], which he never followed up with. He developed nausea and abdominal pain on 05/13/16, and returned to the ER at [facility] on 05/14/[address] worsening abdominal pain. CT abdomen and pelvis suggested small bowel obstruction vs. ileus, with positive large bowel stool/ constipation but no definite small bowel transition point. Reportedly normal lab studies, and he was subsequently transferred here for care/treatment. NG was placed with good relief. Dr Sousa was covering, and evaluated the abdomen, finding him still quite distended and uncomfortable but less after NG placement. There was suggestion of mass or tumor at the ostomy site. He was given enemas, IV fluids, and Citrate of magnesia. on 05/17/16 Interventional radiology was consulted to place a percutaneous drain in an apparent fluid pocket at the mid anterior abdomen. Fluid was clear and no abscess suspected; it was cultured, with no growth seen, and pathology reported this as Class I/no malignant cells. NG/IVs continued, with him requesting large volumes of narcotics for pain relief, yet ambulating outdoors to smoke frequently. His bowel sounds have been consistently normal. Percutaneous drainage had tapered to none. He began having stool in his ostomy bag, and his nausea improved. We slowly allowed PO intake of clears and then fulls, with good stool output. His abdomen remains firm and distended but without guarding and with consistently normal bowel sounds. The IR staff has now pulled the nonfunctioning drain, and this area has remained stable. He is tolerating a full liquid diet and has occasional bouts of transient nausea but has had no further vomiting since the NG has been out. Stool continues flowing in his ostomy bag and he is quite mobile and able to get around without help. We consulted Dr Chris Valero, who originally saw him for this and referred to [facility] for his chemotherapy. Dr Valero has evaluated and it is his opinion that, while his tumor markers do not show exclusively high indicators for metastasis, his clinical picture is extremely concerning for this being the case. He does not feel treatment with any chemotherapy would be practical at this point until he has had a chance to recover from the obstruction. With the patient now tolerating fulls/semi solid foods and having normal stool output without nausea or vomiting, we will therefore discharge home. I've discussed his diet at length, and also his medication regimen, to include Miralax daily, mineral oil, and Mylanta. I've asked him to stop smoking, increase his walking, and to minimize his use of narcotic pain medications, as this is a large portion of the constipation problem. We will plan to discharge him, having a 1 month follow up appointment with us. They seem to understand his course may be such that no further amount of intervention will improve his situation, but that if he does keep his bowels functioning well and he is able to build up strength, we may be able get him to [facility] [facility] for chemotherapy after that. - Time spent with patient Time with patient DS: Greater than 30 minutes Diagnosis - Discharge Diagnosis (1) Bowel obstruction Status: Acute Specialty Discharge - Follow Up or Referrals Follow up with: Bo Baxter MD [Physician] - (See Dr Baxter or Anu in 3-4 weeks) Discharge Plan - Discharge Data Disposition: Disch To Home/Self Care Condition at Discharge: Stable Discharge Diet: other (Modified full liquid with supplements) Activity: resume usual activities as tolerated Hygiene: no restrictions Weight Bearing at Discharge: full weight bearing Driving: no restrictions Contact your physician if you experience:: Nausea/Vomiting - Discharge Medications New Alum/Mag/Simeth Max Str Liquid [Mylanta Max Strength Liquid] 30 ml NG Q6H udcup Docusate Sodium Cap [Colace Cap] 100 mg PO BID capsule HYDROcodone/ACETAMIN 5-325 [[place] 5-325] 1 tablet PO Q6-8H PRN #30 tablet PRN Reason: Pain Moderate (4-7) Mineral Oil 30 ml NG BID udcup Continue Metoclopramide Tab [Reglan Tab] 5 mg PO BID #20 tablet Tramadol HCl [Tramadol Tab] 50 mg PO TID Tamsulosin [Flomax] 0.4 mg PO DAILY - Follow Up or Referral Follow Up: Bo Baxter MD [Physician] - - Forms/Instructions Instructions: Bowel Obstruction (DC) Exam - Constitutional Vitals: Period Temp Pulse Resp BP Sys/Bruce Pulse Ox Last 24 Hr 97.9 F-99.1 F 79-102 14-18 124-144/64-84 96-100 General appearance: no acute distress, disheveled - Eye Eye exam: Present: EOMI Pupils: Present: EMMANUEL - Respiratory Respiratory exam: Present: rhonchi. Absent: rales, wheezes - Cardiovascular Cardiovascular exam: Present: regular rate and rhythm - GI/Abdominal GI/Abdominal exam: Present: normal bowel sounds, distended. Absent: rebound Discharge Results Labs on day of discharge: Labs from last 24 hours 05/30/16 05/30/16 05/30/16 06:14 06:14 05:42 WBC 8.7 RBC 4.27 Hgb 10.1 L Hct 32.3 L MCV 75.6 L MCH 24 L MCHC 31.3 L RDW 15.5 Plt Count 342 MPV 9.1 L Neut % (Auto) 65.1 Lymph % (Auto) 18.7 L [place] % (Auto) 12.8 H Eos % (Auto) 3.0 Baso % (Auto) 0.2 Neut # (Auto) 5.6 Lymph # (Auto) 1.6 [place] # (Auto) 1.1 H Eos # (Auto) 0.3 Baso # (Auto) 0.0 Immature Gran % 0.2 Nucleated RBC % 0.0 Immature Gran # 0.02 Nucleated RBCs # 0.00 Sodium 144 Potassium 3.3 L Chloride 107 Carbon Dioxide 28 Anion Gap 12.3 BUN 2 L Creatinine 0.60 L GFR Calculation 169 BUN/Creatinine Ratio 3.00 L Glucose 91 POC Glucose 105 Calculated Osmolality 281.8 Calcium 8.4 L Magnesium 2.1 05/29/16 05/29/16 05/29/16 23:05 17:56 11:55 WBC RBC Hgb Hct MCV MCH MCHC RDW Plt Count MPV Neut % (Auto) Lymph % (Auto) [place] % (Auto) Eos % (Auto) Baso % (Auto) Neut # (Auto) Lymph # (Auto) [place] # (Auto) Eos # (Auto) Baso # (Auto) Immature Gran % Nucleated RBC % Immature Gran # Nucleated RBCs # Sodium Potassium Chloride Carbon Dioxide Anion Gap BUN Creatinine GFR Calculation BUN/Creatinine Ratio Glucose POC Glucose 116 H 117 H 119 H Calculated Osmolality Calcium Magnesium DS: Provider Date of admission: 05/14/16 18:04 Primary care physician: . No PCP Attending physician on admission: Bo Baxter MD Consults: 05/14/16 18:11 Consult to Pharmacy [CONS] Routine Reason for Pharmacy Consult: Adjust Meds Renal Funct 05/18/16 08:28 Consult to Physical Therapy [CONS] Routine Reason for Physical Therapy: Evaluate and Treat Start Therapy: Today Consult Comment: ambulate into falcon BID 05/20/16 08:43 Consult to Dietitian [CONS] Routine Reason for Dietitian: Dietary Consult Consult Comment: for starting Hyperal 05/24/16 08:31 Consult to Dietitian [CONS] Routine Reason for Dietitian: TPN/PPN-Initiate/Manage Consult Comment: wean tpn 05/27/16 19:04 Consult to Anesthesiology [CONS] Routine Consulting Provider: Reason for Anesthesiology: Pre-op Clearance 05/29/16 10:19 Consult to Case Mgmt/Social Srvs [CONS] Routine Reason for Case Mgmt/Social Srvs: Discharge Planning Consult Comment: check area patient's insurance status and see if he qualifies for home heal Consult to Dietitian [CONS] Routine Reason for Dietitian: Dietary Consult Consult Comment: set up a full liquid diet on patient with supplements Discharging clinician: Anu Auguste CNP, R
[2016-05-30] MEDS: ENOXAPARIN 40 MG/0.4 ML SYRINGE SUBCUT SCH (11:38)
[2016-05-30 12:56] VITALS: BP 133/77
== END 2016-05-30 14:40 | disposition home or self-care (01) | DRG 247 ==
LOC: EDUNIT# → EDBD → N.ED 17:13 → N.EDINP 18:04 → N.3E 18:39
PROVIDERS: ADMIT Specialist; ATTEND Specialist